=== PATIENT | male | born 1945 | race Caucasian/White ===

== ENCOUNTER → 2018-12-27 10:08 | Outpatient (CLI) | payer MEDICARE, OTHER, SELFPAY ==
[2018-12-27 12:29] LABS: Absolute Lymphocyte Count 2.36 X10^3/ul (0.83-4.51); Absolute Neutrophil Count 6.2 X10^3/uL (2.0-7.7); Basophil# 0.02 X10^3/uL; Basophil% 0.2 % (0-1); Eosinophil# 0.16 X10^3/uL; Eosinophils% 1.6 % (0-5); Hematocrit 45.2 % (40-54); Hemoglobin 15.5 g/dl (13.0-16.5); Lymphocyte # 2.36 X10^3/ul (4.0); Lymphocyte % 24.1 % (19-41); Mean Corp Hgb Conc 34.3 g/gl (32-36); Mean Corpuscular Hgb 31.1 pg (27.0-32.0); Mean Corpuscular Volume 90.6 fL (80-94); Mean Platelet Vol. 10.8 fl (6.2-12.0); Monocyte% 10.2 % (0-10); Neutrophil # 6.21 X10^3/uL (2.7-7.7); Neutrophil % 63.6 % (47-70); POSITIVE COUNT NO; POSITIVE DIFFERENTIAL NO; POSITIVE MORPHOLOGY NO; Platelet Count 227 K/mm3 (150-450); RBC Distribution Width CV 13.5 % (11.6-14.6); RBC Distribution Width SD 44.4 fl (35.1-43.9); Red Blood Count 4.99 M/mm3 (4.6-6.2); White Blood Count 9.8 K/mm3 (4.4-11.0)
[2018-12-27 13:00] LABS: ALB/GLOB Ratio 1.1 RATIO (0.9-2.4); AST(SGOT) 19 U/L (15-37); Alanine Aminotransfer ALT/SGPT 28 U/L (16-61); Albumin, Serum 3.9 g/dL (3.2-5.0); Alkaline Phosphatase 72 U/L (45-117); Anion Gap 10 (5-15); BUN 33 mg/dL (7-18); BUN/Creat Ratio 23.4 RATIO (10-20); Chloride 103 mmol/L (98-107); Creatinine, Serum 1.41 mg/dL (0.70-1.30); EST Glomerular Filtration Rate 52 mL/min (>60); Est Glom Filt Rate - Afr Amer 63 mL/min (>60); Globulin 3.5 g/dL (2.2-4.2); Glucose 97 mg/dL (74-106); Microalbumin,Random Urine 47.8 mg/L (NO RANGE EST.); Potassium 3.3 mmol/L (3.5-5.1); Protein, Total 7.4 g/dL (6.4-8.2); Sodium Level 141 mmol/L (136-145); T4 Free Direct 0.87 ng/dL (0.76-1.46); Thyroid Stim Hormone (TSH) 2.74 uIU/mL (0.358-3.74)
== END ==
PROVIDERS: Family Provider Family Medicine; PCP Family Medicine; Visit Provider Family Medicine
DX: I10 Essential (primary) hypertension (principal); R94.6 Abnormal results of thyroid function studies
CPT/HCPCS: 36415; 80053; 82043; 82570; 84439; 84443; 85025

== ENCOUNTER → 2018-12-29 13:05 | Outpatient (CLI) | payer MEDICARE, OTHER, SELFPAY ==
--- NOTE | 2018-12-29 13:08 | RAD_ITS ---
STUDY: X-RAY CHEST REASON FOR EXAM: Male, 73 years old. Chest pain TECHNIQUE: PA and lateral views of the chest COMPARISON: None. FINDINGS: A left base infiltrate is present. The right lung is clear. There is no significant effusion. There is no pneumothorax. The heart is normal in size. The visualized osseous structures are within normal limits. RAD/Chest PA and Lateral IMPRESSION: Left base infiltrate. Electronically Signed: Godfrey Gusman, at 17:42 EDT Tel , Service support ,
== END ==
PROVIDERS: Family Provider Family Medicine; PCP Family Medicine; Referring Provider Family Medicine; Visit Provider Family Medicine
DX: R05 Cough (principal)
CPT/HCPCS: 71046

== ENCOUNTER → 2019-02-19 13:15 | Outpatient (CLI) | payer MEDICARE, OTHER, SELFPAY ==
--- NOTE | 2019-02-19 13:20 | RAD_ITS ---
STUDY: X-RAY CHEST REASON FOR EXAM: Male, 73 years old. Pneumonia follow-up TECHNIQUE: PA and lateral views of the chest. COMPARISON: 12/29/2018 FINDINGS: There is minimal linear density within the left lower lobe. There is no visualized new focal consolidation. There is left lower lobe focal nodularity measuring 5.6 mm and 6.7 mm. There is no demonstrated pleural abnormality. There is a stable peripheral nodular density within the right lung measuring 7.5 mm. Normal size heart. Normal mediastinum and volodymyr. Normal visualized pulmonary arteries. Normal visualized aortic arch and descending thoracic aorta. There are diffuse degenerative changes of the visualized thoracic spine. Normal visualized ribs, clavicles, and shoulders. There is no demonstrated abnormality of the visualized soft tissue structures of the upper abdomen. RAD/Chest PA and Lateral IMPRESSION: Linear density in the left lung base which may represent scarring or atelectasis possible residual pneumonia. However there are 2 newly visualized nodular densities. Stable peripheral nodular density right lung. Recommend consideration for follow-up noncontrast chest CT for further evaluation. These may represent inflammatory nodules however neoplastic disease should be excluded. Electronically Signed: Kanika Ortega MD at 18:10 EDT Tel , Service support ,
== END ==
PROVIDERS: Family Provider Family Medicine; PCP Family Medicine; Referring Provider Family Medicine; Visit Provider Family Medicine
DX: R05 Cough (principal)
CPT/HCPCS: 71046

== ENCOUNTER → 2019-02-23 13:11 | Outpatient (CLI) | payer MEDICARE, OTHER, SELFPAY ==
[2016-09-20 08:21] VITALS: BMI 29.2
--- NOTE | 2019-02-23 13:16 | CT_ITS ---
STUDY: CT MAXILLOFACIAL SINUSES REASON FOR EXAM: Male, 73 years old. Sinusitis. Congestion. RADIATION DOSAGE (If Supplied By Facility): CTDIvol = ( 33.00 ) mGy, DLP = ( 804.92 ) mGycm TECHNIQUE: The patient was scanned in a multi detector CT scanner. High resolution axial imaging was performed without the administration of intravenous contrast material. Sagittal and coronal images were reconstructed. Individualized dose optimization techniques were used for this CT. COMPARISON: None. FINDINGS: FRONTAL SINUSES: Normal aeration, without mucosal inflammatory disease. ETHMOIDAL SINUSES: Normal aeration, without mucosal inflammatory disease. MAXILLARY SINUSES: Minimal mucosal thickening of the right maxillary sinus. SPHENOIDAL SINUSES: Normal aeration, without mucosal inflammatory disease. There is patency of the bilateral maxillary infundibuli with normal uncinate processes, ethmoid bullae, and hiatus semilunaris. Normal bilateral middle turbinates. Normal bilateral inferior turbinates. There is a right sided nasal septal deviation with a right sided nasal septal spur. There is patency of the bilateral nasal airways. The visualized osseous structures are normal. The visualized bilateral orbital contents are normal. CT/Sinus/Facial Bone IMPRESSION: Minimal mucosal thickening of the right maxillary sinus. Right sided nasal septal deviation with a nasal septal spur. Electronically Signed: Yakov Mcclure, at 14:35 EDT , Service support ,
--- NOTE | 2019-02-23 13:18 | CT_ITS ---
STUDY: CT CHEST WITHOUT CONTRAST REASON FOR EXAM: Male, 73 years old. Sinusitis. Congestion. Lung nodule. Question pneumonia. RADIATION DOSAGE (If Supplied By Facility): CTDIvol = ( 13.66 ) mGy, DLP = ( 484.72 ) mGycm TECHNIQUE: Transaxial imaging was performed without the administration of intravenous contrast material. Multiplanar coronal and sagittal images were reformatted. Individualized dose optimization techniques were used for this CT. COMPARISON: Chest, February 19, 2019. FINDINGS: There is minimal linear scarring in the lingula. The lungs are otherwise mildly hyperexpanded. There is no visualized mass or nodule. No consolidation. There is no demonstrated pleural abnormality. Normal heart and pericardium. Normal mediastinum. Normal hilar regions. Normal unenhanced pulmonary arteries. There is scattered atherosclerotic changes of the thoracic aorta without aneurysm. There are multi-level degenerative changes of the thoracic spine. Prominence left thyroid with low-attenuation suggesting nodule. There is no demonstrated abnormality of the visualized upper abdomen. CT/Chest without Contrast IMPRESSION: 1. Linear scarring in the lingula. There is no evidence of nodular density or infiltrate within the lungs. 2. Enlarged left thyroid. 3. Minimal atherosclerotic changes of the thoracic aorta. Electronically Signed: Santosh Jackson DO at 17:20 EDT Tel [phone], Service support ,
== END ==
PROVIDERS: Family Provider Family Medicine; PCP Family Medicine; Referring Provider Otolaryngology; Visit Provider Otolaryngology
DX: J32.9 Chronic sinusitis, unspecified (principal); R05 Cough
CPT/HCPCS: 70486; 71250

== ENCOUNTER → 2019-03-08 13:54 | Outpatient (CLI) | payer MEDICARE, OTHER, SELFPAY ==
--- NOTE | 2019-03-08 13:57 | US_ITS ---
HISTORY: NODULE SEEN ON CT COMPARISON: CT chest 02/23/2019 TECHNIQUE: Grayscale and color Doppler sonography of the thyroid gland. FINDINGS: RIGHT LOBE: 4.8 x 1.7 x 1.5 cm LEFT LOBE: 3.6 x 1.9 x 2.3 cm ISTHMUS: 4 mm 6 x 3 x 5 mm and 4 x 3 x 3 mm right thyroid lobe cysts. Mildly heterogeneous 2.5 x 1.9 x 1.8 cm left thyroid lobe nodule, nearly isoechoic centrally and hypoechoic peripherally with increased vascularity and relatively smooth margins. No definite calcifications. TI-RADS 4. Normal overall thyroid vascularity. US/Thyroid IMPRESSION: Solid left thyroid lobe nodule. Fine-needle aspiration recommended for further characterization. at 0626 Reported and signed by: Heather Constantino MD Electronically Signed: Heather Constantino MD at 6:26 EDT Tel , Service support ,
== END ==
PROVIDERS: Family Provider Family Medicine; PCP Family Medicine; Referring Provider Family Medicine; Visit Provider Family Medicine
DX: E04.1 Nontoxic single thyroid nodule (principal)
CPT/HCPCS: 76536

== ENCOUNTER → 2019-03-27 10:54 | Outpatient (CLI) | payer MEDICARE, OTHER, SELFPAY ==
[2019-03-27 09:04] VITALS: BMI 29.2
--- NOTE | 2019-03-27 09:10 | ASPS_PTH ---
PATIENT: MAGDALENE KWOK LOC: [facility] U#:[id number] AGE/SX: 79/M ROOM: RE03/27/[address]: Dr. Shimon Hunter MD : 1945 BED: DIS: SPEC #: [id number] RECD: 03/27/19 10:42 STATUS: KAYLA ARSLAN #: [id number] UBALDO: 03/27/19 09:[address]: Shimon Hunter DEPT: CYTOLOGY RECD BY: Jono Nichols ENTERED: 03/27/19 11:12 SP TYPE: ASPIRATION OTHR DR: Dr. Jacob Watson MD Tissues: Thyroid gland, NOS Procedures: Special Stain Group II Cytology Other HEADER OPERATION: Ultrasound guided fine needle aspiration, left thyroid PRE-OP DIAGNOSIS: Uninodular goiter E04.1 TISSUE SUBMITTED: Fine needle aspiration, left thyroid DIAGNOSIS CYTOLOGY Fine needle aspiration, left thyroid nodule (smears): Adequate for evaluation. Negative, consistent with benign follicular/colloid nodule. AM:a[place]in 03/28/19 COMMENT Immediate cytologic evaluation to determine adequacy is not applicable. CYTOLOGY STUDY Slides are reviewed. CYTOLOGY GROSS Received are 12 smears labeled with the patient's name and designated per the requisition as FNA left thyroid. Submitted for staining. /CC:cc 03/27/19 TC:5 [facility]: [id number]
== END ==
PROVIDERS: Family Provider Family Medicine; PCP Family Medicine; Referring Provider Surgery; Visit Provider Surgery
DX: E04.1 Nontoxic single thyroid nodule (principal)
CPT/HCPCS: 88161; 88313

== ENCOUNTER → 2019-07-02 10:42 | Outpatient (CLI) | payer MEDICARE, OTHER, SELFPAY ==
[2019-03-27 09:04] VITALS: BMI 29.2
[2019-07-02 12:51] LABS: Anion Gap 3 (5-15); BUN 22 mg/dL (7-18); BUN/Creat Ratio 16.4 RATIO (10-20); Calcium,Total 8.7 mg/dL (8.5-10.1); Chloride 105 mmol/L (98-107); Cholesterol 263 mg/dL (200); Creatinine, Serum 1.34 mg/dL (0.70-1.30); EST Glomerular Filtration Rate 56 mL/min (>60); Est Glom Filt Rate - Afr Amer 67 mL/min (>60); Glucose 92 mg/dL (74-106); High Density Lipoprotein 38 mg/dL; Potassium 3.6 mmol/L (3.5-5.1); Sodium Level 138 mmol/L (136-145); Triglycerides 268 mg/dL; Very Low Density Lipoprotein 54 mg/dL (5-40)
== END ==
PROVIDERS: Family Provider Family Medicine; PCP Family Medicine; Visit Provider Family Medicine
DX: I12.9 Hypertensive chronic kidney disease with stage 1 through stage 4 chronic kidney disease, or unspecified chronic kidney disease (principal); N18.9 Chronic kidney disease, unspecified; E87.6 Hypokalemia; E78.5 Hyperlipidemia, unspecified
CPT/HCPCS: 36415; 80048; 80061; 84443

== ENCOUNTER → 2019-08-02 14:54 | Outpatient (CLI) | payer MEDICARE, OTHER, SELFPAY ==
[2019-03-27 09:04] VITALS: BMI 29.2
--- NOTE | 2019-08-02 14:59 | RAD_ITS ---
STUDY: X-RAY - LUMBAR SPINE REASON FOR EXAM: Male, 74 years old. Radiating low back pain TECHNIQUE: 5 view(s) of the lumbar spine were obtained. COMPARISON: None FINDINGS: Normal lumbar lordosis. There is no substantial scoliosis. There is a normal alignment of the vertebrae. There is multilevel endplate spondylosis of the lumbar vertebrae. There is multi-level degenerative disc disease with multi-level disc space narrowing. There is no demonstrated fracture. There is atherosclerotic calcification of the abdominal aorta without a demonstrated aneurysm. RAD/L/S Spine Min 4 Views IMPRESSION: Degenerative changes of the spine, as detailed above. Electronically Signed: Carl Fulton MD at 13:43 EST , Service support ,
== END ==
PROVIDERS: PCP Family Medicine; Referring Provider Family Medicine; Visit Provider Family Medicine
DX: M54.30 Sciatica, unspecified side (principal)
CPT/HCPCS: 72110

== ENCOUNTER 2019-08-30 14:30 | Outpatient (RCR) | payer MEDICARE, OTHER, SELFPAY ==
[2019-03-27 09:04] VITALS: BMI 29.2
--- NOTE | 2019-08-09 11:27 | HP.PTEVAL_ITS ---
Patient's Visit Information MAGDALENE KWOK is a 74 year old M referred to Physical Therapy by Jacob Watson MD with a diagnosis of sciatica. Date of Evaluation: 08/09/19 Physical Therapist: Bhavin Garcia, [place], OCS, CSCS - Visit Plan Frequency: 2x /Week Duration: 4-6 Weeks Plan: 2x/week for 4-6 weeks for ... 1. NS spine postioning exercises adn focus. 2. LB ROM exercises to HEP. 3. core strengthening in NS(mat). 4. rollout adn stretch quad, HS, ITB, pIriformis. Show hip flexor stretch for HEP. - Subjective Findings: For a year and a half has had recurrent sciatica problems. Initially was given prednisone which helped for 3 months. Came back. He put up with it for a while eventually got more steroids and then it returned after two months. Acted up again before Elvis. Had x ray of back last week which showed was OK. Sent for physical therapy. Pain is posterior R hip down lateral leg to lower leg and sometimes the ankle if he stands too long. Pain is 8/10 standing or walking. Sitting is OK most of time 0/10. Walking at store hurts. Has to hold on to cart at times. No back pain even bending. Stairs are not too bad. Sleeping is uncomfortable when he first lies down as it throbs. LYing on back is worst. L side with pillow between knees is comfortable. Retired. 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 Hobbies include computer work whcih is OK. Basic ADLs are OK but needs to rest. - Pain R lateral leg Pain Intensity (Out of 10): 0 Pain Intensity Range: 0, 8 - Objective R lateral leg slightly tender to touch in ITB and piriformis and down into lateral calf. Posture is stiff in LB and slightly hunched forward, flat lordosis. LB AROM ext mod limited adn creates leg pain R. R SB min limited and R leg pain, L SB OK, flexion limited in lumbar segments, no pain. HS, quad, piriformis, ITB and hip flexors mod tight B. 4/5 LE strength without myotomal abnormalities. reflexes 2/3 patella and achilles. Sensation WNL to gross light touch. PA pressure is stiff but no probem pain church. Walks and transfers I. - Goals Goal 1:: right leg pain 90% better and 1/10 at worst Goal Time Frame: 4-6 Weeks Goal 2:: I approp HEp and positions to minimize problems. Goal Time Frame: 4-6 Weeks Goal 3:: Sleep without discomfort. 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 Goal Time Frame: 4-6 Weeks - Rehabilitation Potential Physical Therapy Diagnosis: sciatica Rehabilitation Potential: Fair - Anticipated Interventions Patient/Client Instruction: Educate patient on: Condition, Plan of Care For the Purpose of:: To decrease pain, To increase ROM, To improve muscle performance and motor function, To increase tolerance to activity/condition/position, To improve ability of physical actions for home/community/work/leisure Therapeutic Exercise to Include: Strength training, Flexibilty training, Dynamic Lumbar Stabilization For the Purpose of:: To decrease pain, To increase ROM, To improve muscle performance and motor function, To increase tolerance to activity/condition/position Manual Therapy Techniques to Include: Passive ROM, Soft tissue mobilization For the Purpose of:: To increase ROM Thank you for the opportunity to evaluate your patient. For Medicare and Medicare HMO plans, please review the plan of care and approve it. It will need to be FAXED BACK to us at [phone] for Medicare purposes. For Medicare only, by signing this I certify the plan of care. Please let me know if there are questions or concerns regarding this plan of care. Physician Signature: Date:
--- NOTE | 2019-08-30 15:15 | HP.PTDCSUM ---
HP - PT D/C Summary It has been my pleasure to treat MAGDALENE KWOK under orders from Jacob Watson MD, for the diagnosis of sciatica for a total of 7 visit(s). Discharge Date: 08/30/19 Please see the following information for a summary of their discharge status. - Subjective Subjective: Not much progress. One day could not do exercise ext due to L leg pain. Got it in most days and seems to help for a little bit. Walking is still what gets him. 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 OK sitting. - Pain R lateral leg Pain Intensity (Out of 10): 4 - Overall Improvement % Improvement: 0 - Objective Objective/Function: L/S aROM still stiff in flexion and painful in ext centrally. R SB creates leg pain but is good. L SB is full and painfree. Walking well today but subjectively limited distance church. PT NOT IMPROVING AND WOULD LIKE TO F/U WITH DOCTOR FOR NEXT MEDICAL STEP(DIAGNOSTICS VS INJEDCTION ETC) POOL THERAPY SHOULD BE CONSIDERED IF NO OTHER OPTIONS. - Goals Goal 1:: right leg pain 90% better and 1/10 at worst Goal Progress: Not Progressing Goal 2:: I approp HEp and positions to minimize problems. Goal Progress: Not Progressing Goal 3:: Sleep without discomfort. 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 If there are questions or concerns regarding this patient's physical therapy, please feel free to call me at [phone]. Thank you for the referral of this patient. Sincerely, Bhavin Garcia, DPT, OCS, CSCS
== END 2019-08-30 19:00 | disposition home or self-care (01) ==
LOC: PT 14:30
PROVIDERS: PCP Family Medicine; Visit Provider Family Medicine
DX: M54.30 Sciatica, unspecified side (principal)
CPT/HCPCS: 97110; 97162; 97164

== ENCOUNTER → 2019-09-07 16:17 | Outpatient (CLI) | payer MEDICARE, OTHER, SELFPAY ==
[2019-03-27 09:04] VITALS: BMI 29.2
--- NOTE | 2019-09-07 16:22 | MRI_ITS ---
STUDY: MRI LUMBAR SPINE WITHOUT CONTRAST REASON FOR EXAM: Male, 74 years old. R FOOT DROP, SCIATICA PAIN INTO R LEG X 4 MONTHS TECHNIQUE: Standardized fat and water weighted pulse sequences were obtained in the sagittal and axial planes. COMPARISON: None FINDINGS: T12-L1: Normal endplates. Normal disc height, hydration and morphology. Normal bilateral facet joints. Normal central canal and bilateral lateral recesses. Normal bilateral intervertebral neural foramina. Normal lumbar lordosis. There is no substantial scoliosis. Normal conus medullaris that terminates at the L1 level. L1-2: Normal endplates. Normal disc height, hydration and morphology. Normal bilateral facet joints. Normal central canal and bilateral lateral recesses. Normal bilateral intervertebral neural foramina. L2-3: Endplate spondylosis. Decreased disc height and small circumferential disc bulge. Degenerative changes of the bilateral facet joints. Mild narrowing of the central canal and bilateral intervertebral neural foramina. L3-4: Endplate spondylosis. Decreased disc height and small circumferential disc bulge. Degenerative changes of the bilateral facet joints. Mild narrowing of the central canal and bilateral intervertebral neural foramina. L4-5: Endplate spondylosis. Decreased disc height and small circumferential disc bulge. There is superimposed left foraminal disc herniation impinging on the left L4 nerve root. Degenerative changes of the bilateral facet joints. Mild narrowing of the central canal and bilateral intervertebral neural foramina. L5-S1: Endplate spondylosis. Decreased disc height and moderate circumferential disc bulge. Right foramina disc herniation impinging on the right L5 nerve root. Degenerative changes of the bilateral facet joints. Moderate narrowing of the central canal. Severe right and moderate left intervertebral neural foraminal narrowing. Normal visualized sacral ala. Normal visualized paraspinous soft tissue structures. MRI/Spine Lumbar (Routine) IMPRESSION: Multilevel degenerative changes, as described above. Left foraminal disc herniation at L4-5. Right foraminal disc herniation at L5-S1. Electronically Signed: Paul Dhillon, at 8:15 EDT Tel , Service support ,
== END ==
PROVIDERS: PCP Family Medicine; Referring Provider Family Medicine; Visit Provider Family Medicine
DX: M54.17 Radiculopathy, lumbosacral region (principal); M21.371 Foot drop, right foot
CPT/HCPCS: 72148

== ENCOUNTER → 2019-11-06 13:28 | Outpatient (CLI) | payer MEDICARE, OTHER, SELFPAY ==
[2019-03-27 09:04] VITALS: BMI 29.2
[2019-11-06 13:30] LABS: Bacteria 0 SEEN /hpf (None Seen); Mucous, Urine 0 SEEN /hpf (<or=2+); White Blood Cells 0 SEEN /hpf (0-5)
[2019-11-06 15:05] LABS: Absolute Lymphocyte Count 1.14 X10^3/uL (0.83-4.51); Basophil# 0.06 X10^3/uL; Basophil% 0.5 % (0-1); Eosinophil# 0.13 X10^3/uL; Eosinophils% 1.1 % (0-5); Hematocrit 47.7 % (40-54); Hemoglobin 16.1 g/dL (13.0-16.5); Lymphocyte # 1.14 X10^3/ul (4.0); Lymphocyte % 9.2 % (19-41); Mean Corp Hgb Conc 33.8 g/dL (32-36); Mean Corpuscular Hgb 31.4 pg (27.0-32.0); Mean Platelet Vol. 10.4 fl (6.2-12.0); Monocyte# 0.95 X10^3/uL; Monocyte% 7.7 % (0-10); NRBC Flagged by Analyzer 0 % (0-5); Neutrophil # 10.01 X10^3/uL (2.7-7.7); Neutrophil % 80.8 % (47-70); Platelet Count 277 K/mm3 (150-450); RBC Distribution Width CV 13.4 % (11.6-14.6); RBC Distribution Width SD 45.9 fl (35.1-43.9); Red Blood Count 5.13 M/mm3 (4.6-6.2); White Blood Count 12.4 K/mm3 (4.4-11.0)
[2019-11-06 15:22] LABS: Anion Gap 9 (5-15); BUN 27 mg/dL (7-18); BUN/Creat Ratio 20.8 RATIO (10-20); Calcium,Total 9.3 mg/dL (8.5-10.1); Chloride 102 mmol/L (98-107); EST Glomerular Filtration Rate 57 mL/min (>60); Est Glom Filt Rate - Afr Amer 70 mL/min (>60); Glucose 101 mg/dL (74-106); Potassium 3.8 mmol/L (3.5-5.1); Sodium Level 138 mmol/L (136-145)
[2019-11-06 17:10] LABS: Color, Urine Yellow (Yellow); Glucose, Dipstick Normal (Normal); Ketone-Dipstick 5 mg/dl (Negative); Leukocyte Esterase-Dipstick Negative /ul (Negative); Nitrite-Dipstick Negative (Negative); Occult Blood-Urine 10 /ul (Negative); Protein-Dipstick Negative (Negative); Urine Bilirubin Dipstick Negative (Negative); Urine Clarity Sl. Cloudy (Clear); Urine Urobilinogen Normal (Normal)
[2019-11-06 17:24] LABS: Red Blood Cells-Urine 0-5 SEEN /hpf (0-5); Squamous Epithelial Cells - UA 0-5 SEEN /hpf (0-5)
== END ==
PROVIDERS: PCP Family Medicine; Visit Provider Family Medicine
DX: Z01.818 Encounter for other preprocedural examination (principal)
CPT/HCPCS: 36415; 80048; 81001; 85025

== ENCOUNTER → 2019-12-31 09:58 | Outpatient (CLI) | payer MEDICARE, OTHER, SELFPAY ==
[2019-11-12 15:10] VITALS: BMI 29.8
[2019-12-31 12:39] LABS: Absolute Lymphocyte Count 1.92 X10^3/uL (0.83-4.51); Absolute Neutrophil Count 5.7 X10^3/uL (2.0-7.7); Basophil# 0.03 X10^3/uL; Basophil% 0.3 % (0-1); Eosinophil# 0.09 X10^3/uL; Hematocrit 46.7 % (40-54); Hemoglobin 15.3 g/dL (13.0-16.5); Lymphocyte # 1.92 X10^3/ul (4.0); Lymphocyte % 22.3 % (19-41); Mean Corp Hgb Conc 32.8 g/dL (32-36); Mean Corpuscular Hgb 30.6 pg (27.0-32.0); Mean Corpuscular Volume 93.4 fL (80-94); Mean Platelet Vol. 10.3 fl (6.2-12.0); Monocyte# 0.88 X10^3/uL; Monocyte% 10.2 % (0-10); NRBC Flagged by Analyzer 0 % (0-5); Neutrophil # 5.65 X10^3/uL (2.7-7.7); Neutrophil % 65.6 % (47-70); Platelet Count 290 K/mm3 (150-450); RBC Distribution Width CV 13.2 % (11.6-14.6); White Blood Count 8.6 K/mm3 (4.4-11.0)
[2019-12-31 13:35] LABS: Anion Gap 6 (5-15); BUN 27 mg/dL (7-18); BUN/Creat Ratio 20.6 RATIO (10-20); Calcium,Total 9.4 mg/dL (8.5-10.1); Chloride 104 mmol/L (98-107); Creatinine, Serum 1.31 mg/dL (0.70-1.30); EST Glomerular Filtration Rate 57 mL/min (>60); Est Glom Filt Rate - Afr Amer 69 mL/min (>60); Glucose 102 mg/dL (74-106); Potassium 3.4 mmol/L (3.5-5.1); Sodium Level 139 mmol/L (136-145); T4 Free Direct 0.97 ng/dL (0.76-1.46); Thyroid Stim Hormone (TSH) 2.97 uIU/mL (0.358-3.74)
== END ==
PROVIDERS: PCP Family Medicine; Visit Provider Family Medicine
DX: I10 Essential (primary) hypertension (principal); R94.6 Abnormal results of thyroid function studies
CPT/HCPCS: 36415; 80048; 84439; 84443; 85025

== ENCOUNTER → 2020-01-24 06:20 | Outpatient (CLI) | payer MEDICARE, OTHER, SELFPAY ==
[2020-01-10 09:33] VITALS: BMI 29.4
--- NOTE | 2020-01-24 06:22 | ECHOD_ITS ---
Reason For Study: Abnormal EKG Procedure This was a 2D Doppler, Color Flow transthoracic echocardiogram. The study was technically difficult. Exam performed in department. Left Ventricle Normal LV size. Left ventricular systolic function is normal. The estimated ejection fraction is 65 %. No evidence for diastolic dysfunction. No regional wall motion abnormalities noted. Right Ventricle Normal RV size. Normal systolic function. Atria The left atrium is mildly enlarged. Normal right atrium. No doppler evidence for ASD. Mitral Valve There is no mitral annular calcification. Normal mitral valve. Mild (1+) mitral valve insufficiency. Tricuspid Valve Normal tricuspid valve. Mild tricuspid valve insufficiency. Right ventricular systolic pressure estimated to be 33 mmHg. Aortic Valve Trisinus/trileaflet aortic valve. Normal aortic valve. Pulmonic Valve The pulmonic valve is not well visualized. Trivial pulmonic valve insufficiency. Great Vessels Normal sized aortic root. Pericardium/Pleural No pericardial effusion. MMode/2D Measurements & Calculations LVIDd: 4.7 cm IVSd: 1.2 cm Ao root diam: 3.7 cm LVIDs: 2.6 cm LVPWd: 0.92 cm RVDd: 3.5 cm FS: 43.7 % LAV(MOD-bp): 43.2 ml LA A4 area: 19.8 cm2 LA dimension(2D): 4.2 cm LAV(MOD-bp) Indexed: 22.6 ml/m2 LAV(MOD-sp2): 26.4 ml LAV(MOD-sp4): 55.7 ml RA A4 area: 15.1 cm2 Doppler Measurements & Calculations MV E max tonio: 82.2 cm/sec Lat Peak E' Tonio: 7.9 cm/sec Med Peak E' Tonio: 7.9 cm/sec MV A max tonio: 87.6 cm/sec E/E' lat: 10.4 E/E' med: 10.4 MV E/A: 0.94 Ao V2 max: 186.0 cm/sec LV V1 max: 176.1 cm/sec PA V2 max: 102.1 cm/sec Ao max P.8 mmHg LV V1 max P.4 mmHg Ao V2 mean: 127.2 cm/sec Ao mean P.2 mmHg Ao V2 VTI: 37.6 cm TR max tonio: 273.0 cm/sec TR max P.8 mmHg Interpretation Summary The study was technically difficult. Left ventricular systolic function is normal. The estimated ejection fraction is 65 %. The left atrium is mildly enlarged. Mild (1+) mitral valve insufficiency. Mild tricuspid valve insufficiency. Trivial pulmonic valve insufficiency. Right ventricular systolic pressure estimated to be 33 mmHg. No evidence for diastolic dysfunction. Ordering Physician: Rubén James Referring Physician: Jacob Watson Performed By: Roof, Hilaria, RDCS, RVT
--- NOTE | 2020-01-24 08:48 | STRESSREP ---
Stress Test Report Date: 01-24-2020 Procedure: Pharmacologic stress nuclear imaging study Indications: Abnormal ECG; hypertension Consent: Per the patient Procedure: The patient underwent pharmacologic (Regadenoson) evaluation with a peak heart rate of 100 beats per minute (68 %predicted maximal heart rate) and a peak blood pressure of 160/90 mmHg. The baseline ECG demonstrated sinus rhythm; right bundle branch block. The peak pharmacologic ECG demonstrated no obvious ECG changes. There were no cardiac dysrhythmias pretest, during pharmacologic infusion, or recovery. There was no complaint of chest discomfort during pharmacologic infusion or recovery. The examination was discontinued secondary to completion of protocol. Impression: 1. Pharmacologic (Regadenoson) evaluation 2. Peak pharmacologic ECG with continued right bundle branch block with no obvious ECG changes. 3. There were no cardiac dysrhythmias pretest, during pharmacologic infusion, or recovery. 4. Nuclear images pending Myocardial perfusion imaging study: Technique: The patient was injected with 11.4 millicuries of technetium 99m Cardiolite and subsequently rest SPECT Cardiolite nuclear imaging was obtained in the horizontal long, vertical long, and short axis views. The patient underwent pharmacologic (Regadenoson) evaluation with a peak heart rate of 100 beats per minute (68 % percent predicted maximal heart rate) and a peak blood pressure of 160/90 mmHg. The patient was injected with 32.7 millicuries of technetium 99m Cardiolite and subsequently stress SPECT Cardiolite nuclear imaging was obtained in the horizontal long, vertical long, and short axis views. A gated Cardiolite study at peak stress was obtained. Interpretation: Rest and stress SPECT Cardiolite nuclear imaging status post realignment, normalization, and attenuation correction demonstrate the appearance of a small area of subtle diminished tracer uptake near the apical segments without significant change between rest and stress. There is end systolic thickening and brightening. The gated Cardiolite study demonstrates myocardial thickening and inward wall motion. The reported LVEF is 88 %. Impression: 1. Rest and stress SPECT Cardiolite nuclear imaging demonstrate myocardial perfusion changes appearing compatible defects of physiologic apical thinning with no myocardial perfusion changes consider diagnostic for associated stress-induced myocardial ischemia. 2. The gated Cardiolite study reports an LVEF of 88 %. This note was generated with SMR SITEation software. It may contain incorrect words, spelling, and punctuation that were not noted in checking the note before signing.
== END ==
PROVIDERS: PCP Family Medicine; Referring Provider Internal Medicine Cardiovascular Disease; Visit Provider Internal Medicine Cardiovascular Disease
DX: R94.31 Abnormal electrocardiogram [ECG] [EKG] (principal); I10 Essential (primary) hypertension; E78.5 Hyperlipidemia, unspecified; I45.10 Unspecified right bundle-branch block; G47.30 Sleep apnea, unspecified
CPT/HCPCS: 78452; 93017; 93306; A9500; A4216; J2785

== ENCOUNTER → 2022-04-06 | Outpatient (CLI) | payer MEDICARE, SELFPAY ==
[2022-04-06 12:28] LABS: Absolute Lymphocyte Count 1.85 X10^3/uL (0.83-4.51); Absolute Neutrophil Count 4.1 X10^3/uL (2.0-7.7); Basophil# 0.05 X10^3/uL; Basophil% 0.7 % (0-1); Eosinophil# 0.15 X10^3/uL; Eosinophils% 2.2 % (0-5); Hemoglobin 15.6 g/dL (13.0-16.5); Lymphocyte # 1.85 X10^3/ul (0.83-4.51); Lymphocyte % 27.1 % (19-41); Mean Corp Hgb Conc 34.7 g/dL (32-36); Mean Corpuscular Hgb 31.5 pg (27.0-32.0); Mean Corpuscular Volume 90.9 fL (80-94); Mean Platelet Vol. 10.2 fl (6.2-12.0); Monocyte# 0.68 X10^3/uL; NRBC Flagged by Analyzer 0 % (0-5); Neutrophil # 4.08 X10^3/uL (2.7-7.7); Neutrophil % 59.9 % (47-70); Platelet Count 292 K/mm3 (150-450); RBC Distribution Width SD 43.8 fl (35.1-43.9); Red Blood Count 4.95 M/mm3 (4.6-6.2); White Blood Count 6.8 K/mm3 (4.4-11.0)
[2022-04-06 12:49] LABS: BUN 22 mg/dL (7-18); BUN/Creat Ratio 17.3 RATIO (10-20); Calcium,Total 9.1 mg/dL (8.5-10.1); Chloride 104 mmol/L (98-107); Cholesterol 270 mg/dL (200); Creatinine, Serum 1.27 mg/dL (0.70-1.30); EST Glomerular Filtration Rate 59 mL/min (>60); Est Glom Filt Rate - Afr Amer 71 mL/min (>60); Glucose 104 mg/dL (74-106); Potassium 3.9 mmol/L (3.5-5.1); Sodium Level 139 mmol/L (136-145); Triglycerides 419 mg/dL
[2022-04-06 12:50] LABS: Anion Gap 6 (5-15); High Density Lipoprotein 35 mg/dL; T4 Free Direct 0.84 ng/dL (0.76-1.46); Thyroid Stim Hormone (TSH) 3.04 uIU/mL (0.358-3.74)
== END | disposition home or self-care (01) ==
PROVIDERS: PCP Family Medicine; Visit Provider Family Medicine
DX: I10 Essential (primary) hypertension (principal); R94.6 Abnormal results of thyroid function studies; R73.9 Hyperglycemia, unspecified
CPT/HCPCS: 36415; 80048; 80061; 84439; 84443; 85025

== ENCOUNTER → 2022-08-25 | Outpatient (CLI) | payer MEDICARE, SELFPAY ==
[2022-08-25 12:54] LABS: AST(SGOT) 31 U/L (15-37); Alanine Aminotransfer ALT/SGPT 32 U/L (16-61); Albumin, Serum 4.1 g/dL (3.2-5.0); Alkaline Phosphatase 93 U/L (45-117); Bilirubin, Direct 0.19 mg/dL (0.00-0.30); Cholesterol 162 mg/dL (200); Globulin 3.3 g/dL (2.2-4.2); High Density Lipoprotein 37 mg/dL; Protein, Total 7.4 g/dL (6.4-8.2); Triglycerides 217 mg/dL; Very Low Density Lipoprotein 43 mg/dL (5-40)
== END | disposition home or self-care (01) ==
LOC: BFHLAB 09:48
PROVIDERS: PCP Family Medicine; Visit Provider Family Medicine
DX: E78.5 Hyperlipidemia, unspecified (principal)
CPT/HCPCS: 36415; 80061; 80076

== ENCOUNTER → 2023-06-16 | Outpatient (CLI) | payer MEDICARE, SELFPAY ==
[2023-06-16 18:10] LABS: CRP < 2.90 mg/L (0.0-3.0)
[2023-06-16 18:57] LABS: Erythrocyte Sedimentation Rate 11 mm/hr (0-20)
== END | disposition home or self-care (01) ==
LOC: BFHLAB 16:27
PROVIDERS: PCP Family Medicine; Visit Provider Family Medicine
DX: M35.3 Polymyalgia rheumatica (principal)
CPT/HCPCS: 36415; 85652; 86140

== ENCOUNTER → 2023-10-20 | Outpatient (CLI) | payer MEDICARE, SELFPAY ==
[2023-10-20 17:43] LABS: Absolute Lymphocyte Count 1.85 X10^3/uL (0.83-4.51); Absolute Neutrophil Count 4.7 X10^3/uL (2.0-7.7); Basophil# 0.04 X10^3/uL; Basophil% 0.6 % (0-1); Eosinophil# 0.14 X10^3/uL; Eosinophils% 1.9 % (0-5); Hematocrit 44.4 % (40-54); Hemoglobin 14.8 g/dL (13.0-16.5); Lymphocyte # 1.85 X10^3/ul (0.83-4.51); Lymphocyte % 25.4 % (19-41); Mean Corp Hgb Conc 33.3 g/dL (32-36); Mean Corpuscular Hgb 30.3 pg (27.0-32.0); Mean Platelet Vol. 10.2 fl (6.2-12.0); Monocyte# 0.52 X10^3/uL; Monocyte% 7.2 % (0-10); NRBC Flagged by Analyzer 0 % (0-5); Neutrophil % 64.6 % (47-70); Platelet Count 257 K/mm3 (150-450); RBC Distribution Width CV 12.7 % (11.6-14.6); RBC Distribution Width SD 42.5 fl (35.1-43.9); Red Blood Count 4.88 M/mm3 (4.6-6.2); White Blood Count 7.3 K/mm3 (4.4-11.0)
[2023-10-20 18:42] LABS: Anion Gap 9 (5-15); BUN 21 mg/dL (7-18); BUN/Creat Ratio 16.7 RATIO (10-20); Calcium,Total 9.3 mg/dL (8.5-10.1); Chloride 103 mmol/L (98-107); Cholesterol 163 mg/dL (200); Creatinine, Serum 1.26 mg/dL (0.70-1.30); EST Glomerular Filtration Rate 59 mL/min (>60); Est Glom Filt Rate - Afr Amer 71 mL/min (>60); Glucose 117 mg/dL (74-106); High Density Lipoprotein 39 mg/dL; PSA,Total - Annual Screen 1.29 ng/mL (0.00-4.00); Potassium 3.5 mmol/L (3.5-5.1); Sodium Level 137 mmol/L (136-145); Triglycerides 210 mg/dL; Very Low Density Lipoprotein 42 mg/dL (5-40)
== END | disposition home or self-care (01) ==
LOC: BFHLAB 14:15
PROVIDERS: PCP Family Medicine; Referring Provider Family Medicine; Visit Provider Family Medicine
DX: Z12.5 Encounter for screening for malignant neoplasm of prostate (principal); E78.5 Hyperlipidemia, unspecified; I10 Essential (primary) hypertension
CPT/HCPCS: 36415; 80048; 80061; 84153; 85025; G0103

== ENCOUNTER 2023-11-04 22:11 | Observation (INO) | payer MEDICARE, SELFPAY ==
[2023-11-04 22:12] VITALS: BP 163/91; PULSE 97; RESP 18; TEMP 36.6; O2SAT 99
--- NOTE | 2023-11-04 22:13 | CT_ITS ---
We are attempting to reach an attending provider to discuss findings. An addendum with communication details will be sent when the communication is complete. INDICATION: cva EXAMINATION: CTA HEAD, AND CTA NECK TECHNIQUE: Routine carotid CT angiogram protocol was performed without and with IV contrast. In addition, images were obtained of the [place]. NASCET criteria using the distal ICAs for comparison were used for evaluation of stenoses. 3D reconstructions were reviewed. A radiation dose optimization technique was used for this scan. IV Contrast dosage and agent: COMPARISON: FINDINGS: --CTA NECK: AORTIC ARCH AND BRANCHES: Normal anatomy, patent. RIGHT CCA: No occlusion, significant stenosis or dissection. RIGHT ICA: No occlusion, significant stenosis or dissection. LEFT CCA: No occlusion, significant stenosis or dissection. LEFT ICA: No occlusion, significant stenosis or dissection. Minimal calcification at the proximal segment. RIGHT VERTEBRAL ARTERY: No occlusion, significant stenosis or dissection. LEFT VERTEBRAL ARTERY: No occlusion, significant stenosis or dissection. NECK SOFT TISSUES: Unremarkable. --CTA HEAD: --Anterior circulation: ICAs: No significant stenosis at the intracranial/visualized segments. ACAs: No significant stenosis at the visualized segments. ACOM: Present. MCAs: No significant stenosis at the visualized segments. --Posterior circulation: PCOMs: Patent on the right. Nonvisualization on the left. consulting manager: Probable hypoplastic right P1 segment. BASILAR ARTERY: No significant stenosis. VERTEBRAL ARTERIES: No significant stenosis at the intradural/visualized segments. No evidence of intracranial aneurysm or vascular malformation. CT/STROKE CTA Head AND Neck W/Con IMPRESSION: Negative CTA Carotid, and CTA Brain. Electronically Signed: Quinton Capps DO at 22:55 EDT Reading Location ID and State: [facility] / [place] Tel [phone], Service support ,
--- NOTE | 2023-11-04 22:13 | CT_ITS ---
We are attempting to reach an attending provider to discuss findings. An addendum with communication details will be sent when the communication is complete. INDICATION: cva EXAMINATION: CT BRAIN - CT Head Stroke Protocol W/O Contrast Injection TECHNIQUE: Multiple axial images were obtained of the head without intravenous contrast. A radiation dose optimization technique was used for this scan. IV Contrast dosage and agent: None. RADIATION DOSAGE (If Supplied By Facility): CTDIvol = ( 44.99 ) mGy, DLP = ( 846.73 ) mGycm COMPARISON: FINDINGS: BRAIN PARENCHYMA: No intra- or extra-axial hemorrhage. No evidence of acute infarct. No intracranial mass or mass effect. Mild age-related white matter microangiopathic ischemic changes. Posterior fossa structures are unremarkable. CSF SPACES: Prominent ventricles and extra-axial spaces with mild atrophy.. No hydrocephalus. Basal cisterns are patent. CALVARIUM, SKULL BASE, PARANASAL SINUSES AND MASTOID AIR CELLS: Clear. No discrete lytic or blastic abnormalities. ORBITS: Both globes, extraocular muscles, optic nerves and retrobulbar fat appear unremarkable. ASPECTS Score for Acute Strokes: 10 CT/STROKE Brain/Head without Cont IMPRESSION: Age-related changes. Electronically Signed: Quinton Capps DO at 22:44 EDT Reading Location ID and State: [facility] / [place] Tel [phone], Service support ,
[2023-11-04 22:15] VITALS: BP 163/91; TEMP 36.4; BMI 28.0
--- NOTE | 2023-11-04 22:15 | ED.VIS.STROK ---
HPI History of Present Illness Chief Complaint: Stroke Alert Detail of Chief Complaint: Abrupt onset of numbness left side and weakness left side Informant: patient and spouse/S.O. Onset/Context/Timing Onset: Hours (15 minutes prior to arrival) Context: Sudden Onset Timing: Continuous Quality and Location: Positive for Left Face Parasthesia, Left Arm Parasthesia, Left Arm Weakness, Left Leg Weakness and Difficulty with Ambulation; Negative for Slurred Speech, Expressive Aphasia or Receptive Aphasia Current Severity: Mild Maximum Severity: Mild Worsened by: Nothing Relieved by: Nothing Associated Symptoms Associated Symptoms: Negative for Headache, Nausea, Vomiting or Chest Pain Narrative Narrative: Patient is a 78-year-old male. He has history of essential hypertension, GERD, hyperlipidemia who presents with left-sided numbness and weakness. This started 50 minutes prior to presentation. Stroke team was initiated. Patient [place] headache, visual, ocular auditory symptoms. Patient has trouble with speech or swallowing. Patient denies trouble walking however I observed him walking in from the entrance and he is dragging his left leg slightly. Patient denies chest pain, shortness of breath, nausea or vomiting. Patient has no other symptoms. 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 DDD (degenerative disc disease) ED (erectile dysfunction) Elevated TSH Essential hypertension Fatigue Gastritis GERD (gastroesophageal reflux disease) History of colon polyps Polymyalgia rheumatica RBBB (right bundle branch block) Seasonal allergies Sleep apnea Home Medications hydrochlorothiazide 12.5 mg capsule 12.5 mg PO DAILY 09/17/16 [History Last Taken Unknown] nifedipine 60 mg tablet,extended release 24 hr 60 mg PO DAILY 09/17/16 [History Last Taken 09/20/16 07:30] omeprazole 20 mg capsule,delayed release 20 mg PO DAILY 09/17/16 [History Last Taken Unknown] citalopram 10 mg tablet 10 mg PO DAILY 07/08/21 [History Last Taken Unknown] acetaminophen 500 mg tablet 500 mg PO Q6H PRN pain 08/18/22 [History Last Taken Unknown] rosuvastatin 10 mg tablet 10 mg PO DAILY 08/18/22 [History Last Taken Unknown] Allergy/AdvReac Type Severity Reaction Status Date / Time No Known Allergies Allergy Verified 10/20/23 08:52 Family History Mother CVA (cerebral vascular accident) Hypertension Surgical History History of back surgery (~11/16/19) History of esophagogastroduodenoscopy (EGD) History of hand surgery History of Mohs micrographic surgery for skin cancer Hx of bilateral cataract extraction Hx of colonoscopy Hx of left inguinal hernia repair Hx of tonsillectomy Status post biopsy of thyroid gland (~03/28/19) Social History (Updated 11/04/23 @ 22:[address] Karri Linda MD) household members: spouse Smoking Status: Never smoker alcohol intake: current alcohol intake frequency: a few times a week substance use type: does not use caffeine: Yes what type of physical activity do you participate in: none frequency: does not exercise ROS ROS ED Constitutional Constitutional ED: Denies weakness Eyes Eyes: Denies blurry vision, change in vision or diplopia Cardiovascular Cardiovascular: Denies chest pain or palpitations Respiratory/Chest Respiratory/Chest: Denies cough, dyspnea or dyspnea on exertion Gastrointestinal Gastrointestinal: Denies abdominal pain, nausea or vomiting Musculoskeletal Musculoskeletal: Denies back pain or neck pain Integumentary Denies rash Neurologic Neurologic: Reports paresthesias and weakness Hematologic/Lymphatic Hematologic/Lymphatic: Denies easy bleeding or easy bruising EXAM Physical Exam Const Vital Signs: 11/04/23 22:12 11/04/23 22:15 11/04/23 22:34 Temperature 98 F 97.6 F L Temperature Source Temporal Temporal Pulse Rate 97 86 Respiratory Rate 18 20 H Blood Pressure 163/91 H 163/91 H 135/115 H Blood Pressure Mean 115 115 121 Pulse Ox 99 96 Oxygen Delivery Method Room Air Room Air 11/04/23 22:35 11/04/23 22:43 Temperature Temperature Source Pulse Rate 76 Respiratory Rate 17 Blood Pressure 154/73 H Blood Pressure Mean 100 Pulse Ox 95 Oxygen Delivery Method Room Air Room Air Positive well nourished and well developed General Appearance ED: well developed and NAD HEENT Reports moist mucous membranes atraumatic Nose: other Other Details: Normal Eyes PERRL and EOMs intact bilaterally Eyes Narrative: There is no nystagmus. There is no visual field cut. General Eye ED: Negative for pale conjunctiva or scleral icterus Neck no lymphadenopathy, supple and no JVD Neck Narrative: There are no carotid bruits. Resp normal respiratory effort and clear to auscultation bilaterally Cardio no murmurs Rate: regular rate Rhythm: regular rhythm GI normal to inspection, nondistended, normoactive bowel sounds, soft to palpation, non-tender, non-distended and no masses Extremity normal to inspection General Extremety ED: Negative for deformity or edema General Extremity: Negative for deformity or edema Neuro oriented x3, CN's II-XII intact bilaterally and No no sensory deficits noted Naina Coma Scale: document GCS findings Spontaneous Obeys Commands Oriented 15 Sensorium / Orientation: alert Speech: speech normal Gait (Neuro): Negative for normal gait Sensory Exam: sensory level loss detected Motor Exam: Negative for strength 5/5 throughout Psych mental status grossly normal Skin no wounds General Skin Exam: Negative for jaundice Lesions: no lesions Rashes: no rashes NIHSS NIHSS Initial: 1a Level of Consciousness: 0 1b LOC Questions (Score 2 if aphasic/stupor): 0 1c LOC Commands (Only score 1st attempt): 0 2 Best Gaze (If aphasic, use reflexive mvmts.): 0 3 Visual: 0 4 Facial Palsy: 0 5 Motor Arm Left: 1 6 Motor Leg Right: 0 6 Motor Leg Left: 1 7 Limb ataxia (Only + if out of proportion): 0 8 Sensory (Aphasia/stupor=0 or 1, coma=2): 1 9 Best Language: 0 10 Dysarthria (mute, coma=2, intubated=UN): 0 Total Score: 3 MDM MDM MDM Narrative Medical decision making narrative: Stroke team initiated. Stroke order set was initiated. Patient's blood pressure is elevated. Will allow for permissive hypertension. Patient has left-sided symptoms. His NIH is 3. Spoke to . He is never had a stroke before. History & Record Review Additional record(s) reviewed:: Prior outpatient record (Patient had office visit I was available for review October [address] Eliel Almeida. He was evaluated 2018 for thyroid nodule by Dr. Hunter.), Prior ED visit and Prior labs Lab Data Attestation: I reviewed the patient's lab results. Lab results narrative: CBC is unremarkable. Blood sugar is 130. Labs: Laboratory Results - last 24 hr 11/04/23 11/04/23 22:13 22:20 WBC 9.4 RBC 4.87 Hgb 14.7 Hct 44.7 MCV 91.8 MCH 30.2 MCHC 32.9 RDW Std Deviation 43.2 RDW Coeff of Shelli 12.8 Plt Count 303 MPV 9.9 Immature Gran % (Auto) 0.300 Neut % (Auto) 45.9 L Lymph % (Auto) 39.8 [place] % (Auto) 10.0 Eos % (Auto) 2.9 Baso % (Auto) 1.1 H Absolute Neuts (auto) 4.3 Absolute Lymphs (auto) 3.74 Nucleated RBC % 0 Atypical Lymphocytes 2+ Platelet Estimate ADEQUATE RBC Morphology N CHROM Anisocytosis RARE Macrocytosis RARE PT 14.0 INR 1.1 APTT 26.8 Sodium 140 Potassium 3.6 Chloride 104 Carbon Dioxide 29.0 Anion Gap 7 BUN 29 H Creatinine 1.39 H Estim Creat Clear Calc 43.97 Est GFR (MDRD) Af Amer 64 Est GFR (MDRD) Non-Af 53 L BUN/Creatinine Ratio 20.9 H Glucose 118 H Calcium 9.4 Troponin I High Sens 5 POC Glucose 130 H Radiography Chest X-Ray - ED: 1 View, Read by ED Physician, Heart, Mediastinum, Bony Structures, No Acute Disease and Chronic Changes (Lung parenchyma. Independent reviewed interpreted by me 07/30/2004) EKG Initial EKG: Attestation: I personally reviewed and interpreted this EKG as follows: Interpretation: Sinus Rhythm (Rate is 76. There is right bundle branch block. MN interval is 176 ms. QRS duration 50 ms. QT duration 436 ms. [place] is normal.) Management Discussion w/another healthcare provider: Natural Science Manager (Dr. Barba the neurologist at [facility]. She reviewed images. No abnormality noted. Patient to be admitted for local workup. Her NIH is 1. His muscle weakness has not proved/resolved.) Discharge Plan Dx/Rx/DC Orders Clinical Impression: Paresthesia of left arm and leg, Essential hypertension, HLD (hyperlipidemia), Facial paresthesia, Acute left-sided weakness Disposition Disposition: [facility]
[2023-11-04 22:32] LABS: Absolute Lymphocyte Count 3.74 X10^3/uL (0.83-4.51); Absolute Neutrophil Count 4.3 X10^3/uL (2.0-7.7); Basophil% 1.1 % (0-1); Eosinophil# 0.27 X10^3/uL; Eosinophils% 2.9 % (0-5); Hematocrit 44.7 % (40-54); Hemoglobin 14.7 g/dL (13.0-16.5); Lymphocyte # 3.74 X10^3/ul (0.83-4.51); Lymphocyte % 39.8 % (19-41); Mean Corp Hgb Conc 32.9 g/dL (32-36); Mean Corpuscular Hgb 30.2 pg (27.0-32.0); Mean Corpuscular Volume 91.8 fL (80-94); Mean Platelet Vol. 9.9 fl (6.2-12.0); Monocyte# 0.94 X10^3/uL; NRBC Flagged by Analyzer 0 % (0-5); Neutrophil # 4.32 X10^3/uL (2.7-7.7); Neutrophil % 45.9 % (47-70); POSITIVE MORPHOLOGY YES; Platelet Count 303 K/mm3 (150-450); RBC Distribution Width CV 12.8 % (11.6-14.6); RBC Distribution Width SD 43.2 fl (35.1-43.9); Red Blood Count 4.87 M/mm3 (4.6-6.2); White Blood Count 9.4 K/mm3 (4.4-11.0)
[2023-11-04 22:33] LABS: Bedside Glucose 130 mg/dL (74-106)
[2023-11-04 22:34] VITALS: BP 135/115; PULSE 86; RESP 20; O2SAT 96
[2023-11-04 22:41] LABS: International Normalized Ratio 1.1
[2023-11-04 22:42] LABS: Differential Indicated SCAN CRITERIA MET; Partial Thromboplast Time 26.8 Seconds (24.1-36.2)
[2023-11-04 22:43] VITALS: BP 154/73; PULSE 76; RESP 17; O2SAT 95
--- NOTE | 2023-11-04 22:50 | RAD_ITS ---
INDICATION: Neuro deficit, acute, stroke suspected EXAMINATION/TECHNIQUE: X-RAY - XR Chest 1 View COMPARISON: FINDINGS: LINES/DEVICES: None. LUNGS: No consolidation, edema or effusion. No pneumothorax. MEDIASTINUM AND CARDIOVASCULAR STRUCTURES: Cardiac silhouette not enlarged. Central airways and mediastinal contour are unremarkable. BONES AND SOFT TISSUES: Unremarkable. RAD/Chest 1 View IMPRESSION: No radiographic evidence of acute cardiopulmonary disease. Electronically Signed: Quinton Capps DO at 23:15 EDT ,
[2023-11-04 22:53] LABS: Anion Gap 7 (5-15); Anisocytosis RARE; Atypical Lymphocyte 2+ %; BUN 29 mg/dL (7-18); BUN/Creat Ratio 20.9 RATIO (10-20); Calcium,Total 9.4 mg/dL (8.5-10.1); Chloride 104 mmol/L (98-107); Creatinine, Serum 1.39 mg/dL (0.70-1.30); EST Glomerular Filtration Rate 53 mL/min (>60); Est Glom Filt Rate - Afr Amer 64 mL/min (>60); Estimated Creatinine Clearance 43.97 ml/min; Glucose 118 mg/dL (74-106); Platelet Estimate ADEQUATE (ADEQ); Potassium 3.6 mmol/L (3.5-5.1); Red Cell Morphology N CHROM NORMAL (NORM C&C); Sodium Level 140 mmol/L (136-145); Troponin-I HS 5 pg/mL (3.0-78.0)
[2023-11-04 22:54] LABS: Macrocytosis RARE
--- NOTE | 2023-11-04 23:03 | PCM.HP.STD ---
[facility] - General General Date of Admission: 11/04/23 Date of Service: 11/04/23 Chief Complaint: Left-sided Numbness and Weakness. HPI Narrative MAGDALENE DIOR, is a 78 M with a past medical history of essential hypertension, hyperlipidemia, overweight; with BMI of 28.1 this admission, PHILIP, history of GERD; with Hoff's esophagus, PMR, history of benign follicular colloid nodule of thyroid; s/p thyroid biopsy (2019), ED, history of bilateral cataracts; s/p extraction, generalized anxiety, history of Left inguinal hernia repair, DDD; with history of back surgery and OA who presents to [facility] ER complaining of Left-sided numbness and weakness. Mr. Dior reports his symptoms began approximately 50 minutes prior to arrival with the abrupt-onset of Left facial numbness and Left arm and Leg weakness with difficult ambulation noted by ER physician upon presentation. He denies related headache, slurred speech, expressive aphasia, receptive aphasia, nausea, vomiting or diaphoresis. In the ER a 'stroke alert' was initiated with help from [facility] teleneurology that is greatly appreciated with patient's symptoms resolving spontaneously with an initial; NIH score of 3 now down to 1 consistent with suspected TIA and he was then admitted to the CDU under observation status for a stay that is expected to be less than 2 midnights. 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 DDD (degenerative disc disease) ED (erectile dysfunction) Elevated TSH Essential hypertension Fatigue Gastritis GERD (gastroesophageal reflux disease) History of colon polyps Polymyalgia rheumatica RBBB (right bundle branch block) Seasonal allergies Sleep apnea Home Medications hydrochlorothiazide 12.5 mg capsule 12.5 mg PO DAILY 09/17/16 [History Last Taken Unknown] nifedipine 60 mg tablet,extended release 24 hr 60 mg PO DAILY 09/17/16 [History Last Taken 09/20/16 07:30] omeprazole 20 mg capsule,delayed release 20 mg PO DAILY 09/17/16 [History Last Taken Unknown] citalopram 10 mg tablet 10 mg PO DAILY 07/08/21 [History Last Taken Unknown] acetaminophen 500 mg tablet 500 mg PO Q6H PRN pain 08/18/22 [History Last Taken Unknown] rosuvastatin 10 mg tablet 10 mg PO DAILY 08/18/22 [History Last Taken Unknown] clotrimazole-betamethasone 1 %-0.05 % topical cream 1 applic topical BID ANTIFUNGAL 11/05/23 [History Last Taken Unknown] Allergy/AdvReac Type Severity Reaction Status Date / Time No Known Allergies Allergy Verified 10/20/23 08:52 Family History Mother Hypertension CVA (cerebral vascular accident) Diverticulitis Surgical History History of back surgery (~11/16/19) History of esophagogastroduodenoscopy (EGD) History of hand surgery History of Mohs micrographic surgery for skin cancer Hx of bilateral cataract extraction Hx of colonoscopy Hx of left inguinal hernia repair Hx of tonsillectomy Status post biopsy of thyroid gland (~03/28/19) Social History household members: spouse housing: house number of children: 2 service: No 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 HENT: Denies headache, denies stuffy nose, denies sore throat EYES: Denies changes in vision or discharge from eyes Resp: Denies cough, denies shortness of breath Cardiac: Denies chest pain, palpitations or heart racing. GI: Denies abdominal pain, denies changes in bowel, denies nausea or vomiting : Denies changes in urination Extremity: Denies swelling Musculoskeletal: Feels somewhat generally weak and unwell but denies arthralgias or myalgias Neuro: Patient admits to paresthesias of the left face and arm and transient mild weakness of the left leg as per HPI. Heme: Denies any bleeding or bruising Skin: Denies rashes Psychiatric: No complaints voiced related to uncontrolled depression or anxiety. Endocrine: No polyuria, polydipsia or polyphagia. The rest of the 14 point ROS was negative except for positives in HPI. Vital Signs Vital Signs Vital Signs: 11/04/23 22:12 11/04/23 22:15 11/04/23 22:34 Temperature 98 F 97.6 F L Temperature Source Temporal Temporal Pulse Rate 97 86 Respiratory Rate 18 20 H Blood Pressure 163/91 H 163/91 H 135/115 H Blood Pressure Mean 115 115 121 Pulse Ox 99 96 Oxygen Delivery Method Room Air Room Air 11/04/23 22:35 11/04/23 22:43 Temperature Temperature Source Pulse Rate 76 Respiratory Rate 17 Blood Pressure 154/73 H Blood Pressure Mean 100 Pulse Ox 95 Oxygen Delivery Method Room Air Room Air Weight Weight: 174 lb Body Mass Index (BMI) 28.0 Physical Exam Const alert, oriented x3, no apparent distress, average body habitus and healthy appearing General Appearance: cooperative HEENT normocephalic, head/scalp atraumatic, hearing grossly normal bilaterally and moist oral mucous membranes Eyes PERRL and EOMs intact bilaterally Neck no lymphadenopathy and supple Resp normal respiratory effort, no retractions, no use of accessory muscles and clear to auscultation bilaterally Cardio regular rate and regular rhythm GI normal to inspection, nondistended, normoactive bowel sounds, soft to palpation, non-tender and non-distended Extremity normal to inspection, full ROM and no clubbing, cyanosis or edema Skin Skin Narrative: Patient has no evidence of jaundice or rash. Neuro oriented x3, CN's II-XII intact bilaterally and moves all extremities Neuro Narrative: Mild residual weakness in LLE. Sensorium / Orientation: awake, alert, oriented to person, oriented to place and oriented to time Speech: speech normal Psych affect normal Results Medical Records Data Attestation: I reviewed the patient's medical records Lab / Micro Data Attestation: I reviewed the patient's lab results. 11/04/23 22:20 11/04/23 22:20 Labs: Laboratory Results - last 24 hr 11/04/23 22:13: POC Glucose 130 H 11/04/23 22:20: WBC 9.4, RBC 4.87, Hgb 14.7, Hct 44.7, MCV 91.8, MCH 30.2, MCHC 32.9, RDW Std Deviation 43.2, RDW Coeff of Shelli 12.8, Plt Count 303, MPV 9.9, Immature Gran % (Auto) 0.300, Neut % (Auto) 45.9 L, Lymph % (Auto) 39.8, [place] % (Auto) 10.0, Eos % (Auto) 2.9, Baso % (Auto) 1.1 H, Absolute Neuts (auto) 4.3, Absolute Lymphs (auto) 3.74, Nucleated RBC % 0, Atypical Lymphocytes 2+, Platelet Estimate ADEQUATE, RBC Morphology N CHROM, Anisocytosis RARE, Macrocytosis RARE, PT 14.0, INR 1.1, APTT 26.8, Sodium 140, Potassium 3.6, Chloride 104, Carbon Dioxide 29.0, Anion Gap 7, BUN 29 H, Creatinine 1.39 H, Estim Creat Clear Calc 43.97, Est GFR (MDRD) Af Amer 64, Est GFR (MDRD) Non-Af 53 L, BUN/Creatinine Ratio 20.9 H, Glucose 118 H, Calcium 9.4, Troponin I High Sens 5 Imaging [facility] Imaging Services [address] [place] [address] STROKE Brain/Head without Cont MR#: [id number] Acct: [id number] Name: MAGDALENE DIOR Rep #: [id number] : 1945 M 78 From: Quinton Capps DO PCP: Dr. Mat Jacobs DO Status: REG ER Study: STROKE Brain/Head without Cont Date of Exam: 11/04/23 Exam# [id number] Ordering Dr: Karri Linda MD INDICATION: cva EXAMINATION: CT BRAIN - CT Head Stroke Protocol W/O Contrast Injection TECHNIQUE: Multiple axial images were obtained of the head without intravenous contrast. A radiation dose optimization technique was used for this scan. IV Contrast dosage and agent: None. RADIATION DOSAGE (If Supplied By Facility): CTDIvol = ( 44.99 ) mGy, DLP = ( 846.73 ) mGycm COMPARISON: FINDINGS: BRAIN PARENCHYMA: No intra- or extra-axial hemorrhage. No evidence of acute infarct. No intracranial mass or mass effect. Mild age-related white matter microangiopathic ischemic changes. Posterior fossa structures are unremarkable. CSF SPACES: Prominent ventricles and extra-axial spaces with mild atrophy.. No hydrocephalus. Basal cisterns are patent. CALVARIUM, SKULL BASE, PARANASAL SINUSES AND MASTOID AIR CELLS: Clear. No discrete lytic or blastic abnormalities. ORBITS: Both globes, extraocular muscles, optic nerves and retrobulbar fat appear unremarkable. ASPECTS Score for Acute Strokes: 10 CT/STROKE Brain/Head without Cont IMPRESSION: Age-related changes. N.B. : The above Results were Read Back by Quinton Capps DO to Karri Linda MD, and understanding confirmed on 11/04/2023 22:58:24 (ET). Electronically Signed: Quinton Capps DO at 22:44 EDT Reading Location ID and State: [address] [place] [address] Tel [phone], Service support , CC: Dr. Mat Jacobs DO; Dr. Karri Linda MD ~ Sql Server Architect: Signed Assessment & Plan Assessment/Plan (1) TIA (transient ischemic attack): (2) Acute left-sided weakness: (3) Facial paresthesia: (4) Paresthesia of left arm and leg: (5) Essential hypertension: (6) HLD (hyperlipidemia): QUALIFIERS: Hyperlipidemia type: unspecified Qualified Code(s): E78.5 - Hyperlipidemia, unspecified PLAN: Plan 1. Suspected TIA; with transient Left-sided numbness and weakness - Admit to CDU under observation status. Check MRI of the brain to evaluate for possible CVA. Check carotid doppler to evaluate for stenosis. Check echocardiogram to evaluate LVEF. Continue statin and add ECASA. Check Lipid Profile and HgbA1c to complete his metabolic evaluation. [facility] teleneurology is greatly appreciated. 2. Essential hypertension - Hold scheduled antihypertensives until CVA definitively ruled out on MRI to allow for 'permissive hypertension'. 3. Hyperlipidemia Resume statin and check Lipid Profile. 4. Overweight; with BMI of 28.1 this admission plus PHILIP - Weight loss will be recommended and nocturnal CPAP will be offered. 5. History of GERD; with Hoff's esophagus - Resume PPI as previous. 6. PMR - Noted with no evidence of flare at this time. Check ESR. 7. History of benign follicular colloid nodule of thyroid; s/p thyroid biopsy (2019) - Noted. Check TSH in light of #1. 8. ED - Noted. 9. History of bilateral cataracts; s/p extraction - Stable. 10. Generalized anxiety - Give low-dose Xanax prn for breakthrough symptoms. 11. History of Left inguinal hernia repair - Noted. 12. DDD; with history of back surgery - Noted. 13. OA - Give Tylenol prn. 14. DVT prophylaxis - Lovenox 40 mg sq daily. Total time: Approximately 70 minutes. Charges/Coding Visit Charges OBSV E&M: 51236 Observ/hosp same date L2
[2023-11-04 23:12] VITALS: BP 116/97; PULSE 69; RESP 17; O2SAT 97
[2023-11-04 23:13] VITALS: BP 116/97; BP 149/70; PULSE 68; RESP 18; RESP 20; TEMP 36.7; O2SAT 94
--- NOTE | 2023-11-04 23:31 | ECHOD_ITS ---
Reason For Study: TIA/Stroke Procedure This was a 2D Doppler, Color Flow transthoracic echocardiogram. Exam performed portable in patient room. Left Ventricle Normal size and thickness. The left ventricular ejection fraction is 65 %. Normal diastology for age. Right Ventricle Normal right ventricle. Atria The left and right atria are normal. Lipomatous hypertrophy of the atrial septum. Bubble contrast study is negative for PFO/ASD. Mitral Valve Trivial mitral valve insufficiency. Tricuspid Valve Mild tricuspid valve insufficiency. Right ventricular systolic pressure estimated to be 35 mmHg. Aortic Valve Trisinus/trileaflet aortic valve. Trivial aortic valve insufficiency. Pulmonic Valve The pulmonic valve is not well visualized. Trivial pulmonic valve insufficiency. Great Vessels Mildly dilated aortic root. Pericardium/Pleural No pericardial effusion. Medication Performed a rapid injection of agitated mix of 9 cc saline and 1cc air to assess for atrial septal defect. MMode/2D Measurements & Calculations LVIDd: 3.6 cm IVSd: 0.99 cm Ao root diam: 3.5 cm LVIDs: 1.9 cm LVPWd: 1.0 cm RVDd: 3.8 cm FS: 47.8 % LAV(MOD-bp): 46.8 ml LVAd ap4: 24.2 cm2 SV(MOD-sp4): 45.5 ml LAV(MOD-bp) Indexed: 24.8 ml/m2 LVLd ap4: 7.2 cm LAV(MOD-sp2): 33.0 ml EDV(MOD-sp4): 66.3 ml LAV(MOD-sp4): 61.1 ml EDV(sp4-el): 68.7 ml LVAs ap4: 12.1 cm2 LVLs ap4: 5.8 cm ESV(MOD-sp4): 20.7 ml ESV(sp4-el): 21.2 ml EF(MOD-sp4): 68.7 % EF(sp4-el): 69.2 % SV(sp4-el): 47.5 ml LA A4 area: 21.1 cm2 LA dimension(2D): 3.4 cm RA A4 area: 10.9 cm2 TAPSE: 2.4 cm Time Measurements MV dec time: 0.24 sec Doppler Measurements & Calculations MV E max tonio: 85.6 cm/sec Lat Peak E' Tonio: 9.0 cm/sec Med Peak E' Tonio: 6.9 cm/sec MV A max tonio: 93.6 cm/sec E/E' lat: 9.5 E/E' med: 12.4 MV E/A: 0.92 MV dec slope: 362.9 cm/sec2 Ao V2 max: 167.3 cm/sec LV V1 max: 166.6 cm/sec Ao max P.2 mmHg LV V1 max P.1 mmHg Ao V2 mean: 107.5 cm/sec Ao mean P.4 mmHg Ao V2 VTI: 37.0 cm PA V2 max: 115.3 cm/sec TR max tonio: 273.2 cm/sec TR max P.9 mmHg ECHO/Echo Complete Interpretation Summary The left ventricular ejection fraction is 65 %. Lipomatous hypertrophy of the atrial septum. Bubble contrast study is negative for PFO/ASD. Mild tricuspid valve insufficiency. Mildly dilated aortic root. Large hepatic cyst noted. Consider ultrasound liver for further evaluation. Ordering Physician: John Jones Referring Physician: Mat Jacobs Performed By: Hilaria Hutchinson, MADELAINE, RVT
[2023-11-05] VITALS (7 sets, daily range): BP systolic 121–156; BP diastolic 60–76; PULSE 58–72; RESP 16–18; TEMP 36.1–37.2; O2SAT 94–97; BMI 28.1
[2023-11-05 00:13] LABS: Thyroid Stim Hormone (TSH) 4.85 uIU/mL (0.358-3.74)
[2023-11-05 00:15] LABS: Erythrocyte Sedimentation Rate 3 mm/hr (0-20)
[2023-11-05 00:28] LABS: Alcohol, Blood (Medical)-Serum < 3.0 mg/dL
[2023-11-05 01:01] LABS: Hemoglobin A1c 5.4 % (3.8-5.6)
[2023-11-05] MEDS: 0.9% Normal Saline (1000mL) 1,000 ML 50 ML IV (01:53)
[2023-11-05] MEDS: Aspirin 81 MG TAB.CHEW 162 MG PO (01:54)
[2023-11-05] MEDS: 0.9% Saline Lock 10 ML Syringe IV (01:56)
[2023-11-05] MEDS: Atorvastatin Calcium 20 MG Tablet PO (07:38)
[2023-11-05] MEDS: Citalopram 10 MG Tablet PO (07:38)
[2023-11-05] MEDS: Pantoprazole Sodium 20 MG Tablet PO (07:38)
[2023-11-05] MEDS: Aspirin 81 MG TAB.CHEW PO (07:38)
--- NOTE | 2023-11-05 07:57 | PN.HOSP_ITS ---
Reason for Visit Reason for Visit: Diagnoses Hyperlipidemia, unspecified (11/04/23) Transient cerebral ischemic attack, unspecified (11/04/23) Essential (primary) hypertension (11/04/23) Paresthesia of skin (11/04/23) Weakness (11/04/23) Subjective Subjective left sided weakness improved, though still has paresthesias over left shoulder. Objective Data Objective Data Vital Signs: Vital Signs Temp Pulse Resp BP Pulse Ox O2 Del Method 36.7 C 65 18 156/76 H 95 Room Air 11/05/23 07:45 11/05/23 07:45 11/05/23 07:45 11/05/23 07:45 11/05/23 07:45 11/05/23 07:49 Oxygen Delivery Method Room Air Weight: 79.1 kg Body Mass Index (BMI) 28.1 Intake & Output: Intake and Output for Last 24 Hours 11/03/23 11/04/23 11/05/23 23:59 23:59 23:59 Intake Total 200 / 200 Balance 200 / 200 Lab / Micro Data 11/05/23 06:35 11/05/23 06:35 Labs: Laboratory Results - last 24 hr 11/04/23 22:13: POC Glucose 130 H 11/04/23 22:20: WBC 9.4, RBC 4.87, Hgb 14.7, Hct 44.7, MCV 91.8, MCH 30.2, MCHC 32.9, RDW Std Deviation 43.2, RDW Coeff of Shelli 12.8, Plt Count 303, MPV 9.9, Immature Gran % (Auto) 0.300, Neut % (Auto) 45.9 L, Lymph % (Auto) 39.8, [place]key % (Auto) 10.0, Eos % (Auto) 2.9, Baso % (Auto) 1.1 H, Absolute Neuts (auto) 4.3, Absolute Lymphs (auto) 3.74, Nucleated RBC % 0, Atypical Lymphocytes 2+, Platelet Estimate ADEQUATE, RBC Morphology N CHROM, Anisocytosis RARE, Macrocytosis RARE, ESR 3, PT 14.0, INR 1.1, APTT 26.8, Sodium 140, Potassium 3.6, Chloride 104, Carbon Dioxide 29.0, Anion Gap 7, BUN 29 H, Creatinine 1.39 H , Estim Creat Clear Calc 43.97, Est GFR (MDRD) Af Amer 64, Est GFR (MDRD) Non-Af 53 L, BUN/Creatinine Ratio 20.9 H, Glucose 118 H, Hemoglobin A1c 5.4, Calcium 9.4, Troponin I High Sens 5, TSH 4.85 H 11/04/23 23:50: Ethyl Alcohol < 3.0 Radiography Diagnostic Testing: Radiology Impression Brain CT 11/04/23 22:13 IMPRESSION: Age-related changes. N.B. : The above Results were Read Back by Quinton Capps DO to Karri Linda MD, and understanding confirmed on 11/04/2023 22:58:24 (ET). Electronically Signed: Quinton Capps DO at 22:44 EDT , Head/Neck CTA 11/04/23 22:13 IMPRESSION: Negative CTA Carotid, and CTA Brain. N.B. : The above Results were Read Back by Quinton Capps DO to Karri Linda MD, and understanding confirmed on 11/04/2023 22:58:18 (ET). Electronically Signed: Quinton Capps DO at 22:55 EDT , Chest X-Ray 11/04/23 22:50 IMPRESSION: No radiographic evidence of acute cardiopulmonary disease. Electronically Signed: Quinton Capps DO at 23:15 EDT , Physical Exam Const alert and no apparent distress HEENT head/scalp atraumatic and moist oral mucous membranes Eyes PERRL and EOMs intact bilaterally Neck no lymphadenopathy Resp normal respiratory effort, no retractions, no use of accessory muscles and clear to auscultation bilaterally Extremity normal to inspection Neuro Sensorium / Orientation: awake and alert Assessment & Plan Assessment/Plan (1) TIA (transient ischemic attack): (2) Acute left-sided weakness: (3) Facial paresthesia: (4) Paresthesia of left arm and leg: (5) Essential hypertension: (6) HLD (hyperlipidemia): QUALIFIERS: Hyperlipidemia type: unspecified Qualified Code(s): E78.5 - Hyperlipidemia, unspecified PLAN: Plan Acute CVA * onset 15 minutes prior to arrival. concern for TIA/CVA. 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 Recommending increasing ASA to 325/d and clopidogrel 75d for 21 days and event monitor. * Check, echo, FLP. CTA H+N negative, no need for carotid duplex. * Continue ASA and atorvastatin. * Neurology to follow Chronic conditions: * Essential hypertension - hold home medications for now. * Hyperlipidemia Continue statin. * GERD with Hoff's esophagus: continue PPI * PMR - Noted with no evidence of flare at this time. ESR only 3 DVT prophylaxis - enoxaparin. Charges/Coding Visit Charges Inpatient E&M: 87518 Subs Hosp L2
[2023-11-05 08:05] LABS: Absolute Lymphocyte Count 2.12 X10^3/uL (0.83-4.51); Absolute Neutrophil Count 4.1 X10^3/uL (2.0-7.7); Basophil# 0.06 X10^3/uL; Basophil% 0.8 % (0-1); Eosinophil# 0.18 X10^3/uL; Eosinophils% 2.5 % (0-5); Hematocrit 40.4 % (40-54); Hemoglobin 13.6 g/dL (13.0-16.5); Lymphocyte # 2.12 X10^3/ul (0.83-4.51); Lymphocyte % 29.9 % (19-41); Mean Corp Hgb Conc 33.7 g/dL (32-36); Mean Corpuscular Hgb 30.6 pg (27.0-32.0); Mean Platelet Vol. 10.3 fl (6.2-12.0); Monocyte# 0.66 X10^3/uL; Monocyte% 9.3 % (0-10); NRBC Flagged by Analyzer 0 % (0-5); Neutrophil # 4.05 X10^3/uL (2.7-7.7); Neutrophil % 57.2 % (47-70); POSITIVE MORPHOLOGY YES; Platelet Count 251 K/mm3 (150-450); RBC Distribution Width CV 12.7 % (11.6-14.6); RBC Distribution Width SD 42.2 fl (35.1-43.9); Red Blood Count 4.44 M/mm3 (4.6-6.2); White Blood Count 7.1 K/mm3 (4.4-11.0)
[2023-11-05 08:25] LABS: Amphetamine Urine VISTA NEGATIVE (<1000 ng/mL); Barbiturate Urine VISTA NEGATIVE (< 200 ng/mL); Benzodiazepine Urine VISTA NEGATIVE (< 200 ng/mL); Cocaine Urine VISTA NEGATIVE (< 300 ng/mL); Ecstacy Urine VISTA NEGATIVE (< 500 ng/mL); Methadone Urine VISTA NEGATIVE (< 300 ng/mL); PCP Urine VISTA NEGATIVE (< 25 ng/mL); THC Urine VISTA NEGATIVE (< 50 ng/mL); Vista UDS pH Range 6
[2023-11-05 08:50] LABS: ALB/GLOB Ratio 1.1 RATIO (0.9-2.4); AST(SGOT) 24 U/L (15-37); Alanine Aminotransfer ALT/SGPT 22 U/L (16-61); Albumin, Serum 3.4 g/dL (3.2-5.0); Alkaline Phosphatase 84 U/L (45-117); Anion Gap 5 (5-15); BUN 25 mg/dL (7-18); BUN/Creat Ratio 21.7 RATIO (10-20); Calcium,Total 8.8 mg/dL (8.5-10.1); Chloride 105 mmol/L (98-107); Cholesterol 142 mg/dL (200); Creatinine, Serum 1.15 mg/dL (0.70-1.30); EST Glomerular Filtration Rate 66 mL/min (>60); Est Glom Filt Rate - Afr Amer 79 mL/min (>60); Glucose 97 mg/dL (74-106); High Density Lipoprotein 32 mg/dL; Magnesium 2.3 mg/dL (1.6-2.6); Phosphorus 2.4 mg/dL (2.5-4.9); Potassium 3.3 mmol/L (3.5-5.1); Protein, Total 6.4 g/dL (6.4-8.2); Sodium Level 138 mmol/L (136-145); Triglycerides 226 mg/dL; Very Low Density Lipoprotein 45 mg/dL (5-40)
--- NOTE | 2023-11-05 08:56 | CASEMGMT ---
Social Work Pt completed PHQ-9 w/SW. Pt scored a 0, no indications of depressive thoughts or feelings at this time. NGUYEN Stewart
[2023-11-05 08:59] LABS: Differential Indicated SCAN CRITERIA MET
[2023-11-05 09:58] LABS: Differential Comment SCANNED
--- NOTE | 2023-11-05 13:14 | PCM.DC.SUM ---
Providers Date of Admission: 11/04/23 Primary Care Physician: Dr. Mat Jacobs, Consultations 11/05/23 00:33 Consult: Tele-Neurology Routine Consulting Provider: [facility] Reason for Consult: Acute Ischemic Stroke/TIA EMERGENT Consult: No MD Notified: Yes Date Notified: 11/04/23 Time Notified: 23:26 Method of Notification: ED Physician Initiated Nursing Unit Staff Notify [facility] of Tele-Neurology Consult: Yes Reason For Visit: TIA; WITH TRANSIENT LEFT-SIDED NUMBNESS AND Diagnosis Discharge Diagnosis (1) TIA (transient ischemic attack): Status: Acute Code(s): G45.9 - Transient cerebral ischemic attack, unspecified (2) Acute left-sided weakness: Status: Acute Code(s): R53.1 - Weakness (3) Facial paresthesia: Status: Acute Code(s): R20.2 - Paresthesia of skin (4) Paresthesia of left arm and leg: Status: Acute Code(s): R20.2 - Paresthesia of skin (5) Essential hypertension: Status: Chronic Code(s): I10 - Essential (primary) hypertension (6) HLD (hyperlipidemia): Status: Acute Code(s): E78.5 - Hyperlipidemia, unspecified Qualifiers: Hyperlipidemia type: unspecified Qualified Code(s): E78.5 - Hyperlipidemia, unspecified Plan Acute CVA onset 15 minutes prior to arrival. concern for TIA/CVA. 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 Recommending increasing ASA to 325/d and clopidogrel 75d for 21 days and event monitor. Check, echo, FLP. CTA H+N negative, no need for carotid duplex. Continue ASA and atorvastatin. Neurology to follow Questionable hepatic cyst: Incidental finding on echocardiogram. Advised patient to follow-up with his primary care doctor to have an ultrasound to better characterize this. Chronic conditions: Essential hypertension - hold home medications for now. Hyperlipidemia Continue statin. GERD with Hoff's esophagus: continue PPI PMR - Noted with no evidence of flare at this time. ESR only 3 DVT prophylaxis - enoxaparin. Medications at Discharge Home Medications hydrochlorothiazide 12.5 mg capsule 12.5 mg PO DAILY 09/17/16 nifedipine 60 mg tablet,extended release 24 hr 60 mg PO DAILY 09/17/16 omeprazole 20 mg capsule,delayed release 20 mg PO DAILY 09/17/16 citalopram 10 mg tablet 10 mg PO DAILY 07/08/21 acetaminophen 500 mg tablet 500 mg PO Q6H PRN pain 08/18/22 aspirin 325 mg tablet 325 mg PO BREAKFAST #0 tabs 11/05/23 atorvastatin 40 mg tablet 40 mg PO QHS #30 tabs 11/05/23 clopidogrel 75 mg tablet 75 mg PO DAILY #21 tabs 11/05/23 clotrimazole-betamethasone 1 %-0.05 % topical cream 1 applic topical BID ANTIFUNGAL 11/05/23 Hospital Course Operations None Procedures 2-D Echocardiogram Summary of Care Provided Minutes Spent on Discharge: 32 Weight / BMI Weight Weight: 79.1 kg Body Mass Index (BMI) 28.1 ABG / Lab / Microbiology Data 11/05/23 06:35 11/05/23 06:35 Laboratory: Laboratory Results - last 24 hr 11/04/23 22:13: POC Glucose 130 H 11/04/23 22:20: WBC 9.4, RBC 4.87, Hgb 14.7, Hct 44.7, MCV 91.8, MCH 30.2, MCHC 32.9, RDW Std Deviation 43.2, RDW Coeff of Shelli 12.8, Plt Count 303, MPV 9.9, Immature Gran % (Auto) 0.300, Neut % (Auto) 45.9 L, Lymph % (Auto) 39.8, [place] % (Auto) 10.0, Eos % (Auto) 2.9, Baso % (Auto) 1.1 H, Absolute Neuts (auto) 4.3, Absolute Lymphs (auto) 3.74, Nucleated RBC % 0, Atypical Lymphocytes 2+, Platelet Estimate ADEQUATE, RBC Morphology N CHROM, Anisocytosis RARE, Macrocytosis RARE, ESR 3, PT 14.0, INR 1.1, APTT 26.8, Sodium 140, Potassium 3.6, Chloride 104, Carbon Dioxide 29.0, Anion Gap 7, BUN 29 H, Creatinine 1.39 H, Estim Creat Clear Calc 43.97, Est GFR (MDRD) Af Amer 64, Est GFR (MDRD) Non-Af 53 L, BUN/Creatinine Ratio 20.9 H, Glucose 118 H, Hemoglobin A1c 5.4, Calcium 9.4, Troponin I High Sens 5, TSH 4.85 H 11/04/23 23:50: Ethyl Alcohol < 3.0 11/05/23 06:35: WBC 7.1, RBC 4.44 L, Hgb 13.6, Hct 40.4, MCV 91.0, MCH 30.6, MCHC 33.7, RDW Std Deviation 42.2, RDW Coeff of Shelli 12.7, Plt Count 251, MPV 10.3, Immature Gran % (Auto) 0.300, Neut % (Auto) 57.2, Lymph % (Auto) 29.9, [place] % (Auto) 9.3, Eos % (Auto) 2.5, Baso % (Auto) 0.8, Absolute Neuts (auto) 4.1, Absolute Lymphs (auto) 2.12, Nucleated RBC % 0, Differential Comment SCANNED, Sodium 138, Potassium 3.3 L, Chloride 105, Carbon Dioxide 28.0, Anion Gap 5, BUN 25 H, Creatinine 1.15, Estim Creat Clear Calc 53.20, Est GFR (MDRD) Af Amer 79, Est GFR (MDRD) Non-Af 66, BUN/Creatinine Ratio 21.7 H, Glucose 97, Calcium 8.8, Phosphorus 2.4 L, Magnesium 2.3, Total Bilirubin 0.70, AST 24, ALT 22, Alkaline Phosphatase 84, Total Protein 6.4, Albumin 3.4, Globulin 3.0, Albumin/Globulin Ratio 1.1, Triglycerides 226 H, Cholesterol 142, LDL Cholesterol 65, VLDL Cholesterol 45 H, HDL Cholesterol 32 L, Free T4 0.80 11/05/23 07:52: Urine Opiates Screen NEGATIVE, Urine Methadone Screen NEGATIVE, Ur Barbiturates Screen NEGATIVE, Ur Phencyclidine Scrn NEGATIVE, Ur Amphetamines Screen NEGATIVE, MDMA (Ecstasy) Screen NEGATIVE, U Benzodiazepines Scrn NEGATIVE, Urine Cocaine Screen NEGATIVE, U Cannabinoids Screen NEGATIVE, Ur Drug Screen Comment Radiography Diagnostic Testing: Radiology Impression Brain CT 11/04/23 22:13 IMPRESSION: Age-related changes. N.B. : The above Results were Read Back by Quinton Capps DO to Karri Linda MD, and understanding confirmed on 11/04/2023 22:58:24 (ET). Electronically Signed: Quinton Capps DO at 22:44 EDT Reading Location ID and State: [facility] / [place] Tel [phone], Service support , Head/Neck CTA 11/04/23 22:13 IMPRESSION: Negative CTA Carotid, and CTA Brain. N.B. : The above Results were Read Back by Quinton Capps DO to Karri Linda MD, and understanding confirmed on 11/04/2023 22:58:18 (ET). Electronically Signed: Quinton Capps DO at 22:55 EDT , Chest X-Ray 11/04/23 22:50 IMPRESSION: No radiographic evidence of acute cardiopulmonary disease. Electronically Signed: Quniton Capps DO at 23:15 EDT , Echocardiogram 11/04/23 23:31 Interpretation Summary The left ventricular ejection fraction is 65 %. Lipomatous hypertrophy of the atrial septum. Bubble contrast study is negative for PFO/ASD. Mild tricuspid valve insufficiency. Mildly dilated aortic root. Large hepatic cyst noted. Consider ultrasound liver for further evaluation. Ordering Physician: John Jones Referring Physician: Mat Jacobs Performed By: Hilaria Hutchinson, MADELAINE, RVT Brain MRI 11/05/23 23:31 IMPRESSION: Involutional changes of the brain, as described above. Recent right parietal and occipital infarcts. No hemorrhage. Electronically Signed: Tristian Mcgraw MD at 12:11 EDT , D/C Instructions Discharge Diet: Low fat / Low cholesterol Meaningful Use Info Meaningful Use Meaningful Use Diagnoses (Choose all that apply): Ischemic CVA CVA Therapy Assessed for PT,OT and/or ST?: Yes Ischemic Stroke Antithrombotic order at d/c?: Yes Dx of Atrial fib/flutter?: No Anticoagulant at discharge?: No Reason anticoagulant not ordered: Treatment not Indicated Statin Dosing Therapy Reference: STATIN DOSE THERAPY REFERENCE: * Patients > 75 years receive moderate or high dose statin therapy. * Patients 75 years or YOUNGER should receive HIGH intensity statin dose unless contraindicated. You will be required to document reason for non-treatment if statin daily dose does not meet guidelines. HIGH DOSE STATIN THERAPY DAILY Atorvastatin > than or = to 40 mg Rosuvastatin > than or = to 20 mg Amlodipine + Atorvastatin > than or = to 2.5/40 mg Ezetimibe + Simvastatin 10/80 mg Simvastatin 80mg Statins at discharge?: Yes Primary Dx Acute Ischemic CVA?: Yes IV thrombolytic ordered during stay?: No Reason IV thrombolytic not ordered: Treatment not Indicated Discharge Plan Admission Admit Date/Time: 11/04/23 23:24 Primary Reason for Your Visit: Stroke Attending Provider: Bhavin Vicente Primary Care Provider: Mat Jacobs Consulting Providers: Simeon Zendejas; Alicia Kamara; Janeen Malin; Belle Morales; Saniya Dominguez; David Koch; Luz Marina Nevarez; Adrián Ochoa; Se Giang; Hortencia Pinzon; Dixon Garces; Elva Jang; Aston Mallory; Claudia Sierra Johnson; Rocael Hatch; Laurence Benton; Nura Ashby; Fatmata Barba; Shanna Bronson; John Jones Instructions Additional Instructions / Restrictions: You had a stroke. You will be on aspirin, clopidogrel and atorvastatin. You be on the clopidogrel (also known as Plavix) for 21 days and then discontinue. Do recommend that you follow-up with neurology as outpatient. Stated that you wish to follow-up with neurology through [facility]. If you can through your MyChart, see about setting up an appointment, if not then follow your primary care doctor to get that established. You also need to have a 30-day Event monitor. Incidentally, as noted on your echocardiogram that there may be a cyst (typically is just a benign fluid-filled sac). However, I would recommend getting further evaluation with an ultrasound of your liver to better evaluate that. You can arrange that through your primary care doctor. Discharge Orders/Prescriptions Prescriptions: New aspirin 325 mg Tablet 325 mg PO BREAKFAST Qty: 0 0RF clopidogrel 75 mg Tablet 75 mg PO DAILY Qty: 21 0RF atorvastatin 40 mg tablet 40 mg PO QHS Qty: 30 0RF Continued citalopram 10 mg tablet 10 mg PO DAILY acetaminophen 500 mg tablet 500 mg PO Q6H PRN (Reason: pain) nifedipine 60 MG tablet 60 mg PO DAILY hydrochlorothiazide 12.5 MG capsule 12.5 mg PO DAILY omeprazole 20 MG capsule 20 mg PO DAILY clotrimazole-betamethasone 1-0.05 % cream 1 applic TOPICAL BID Rx Instructions: UNTIL 11/09/23 X30 DAYS TOTAL Discontinued rosuvastatin 10 mg tablet 10 mg PO DAILY Other Ambulatory Orders: 30 Day Event Recorder Preventi (Urgent) Timeframe: 1 Day Facility: [facility] - Location: Cardiovascular Services Ordered By: Dr. Bhavin Vicente Referrals / Follow Up: Mat Jacobs DO [Primary Care Provider] - Within 2 Weeks Disposition Disposition (needs filled in before D/C Order can be placed): Home, Self Care Charges/Coding Visit Charges Inpatient E&M: 84102 Disch Hosp >30min
--- NOTE | 2023-11-05 14:43 | NURSING ---
discharge instructions given to patient and verbalized understanding. iv and telemetry removed. laboratory chief giving wheelchair escort out.
--- NOTE | 2023-11-05 14:54 | CON.PCM.NE_ITS ---
Assessment and Plan: Neuro Assessment/Plan Telestroke [facility] Progress Note 78 y/o man with h/o essential hypertension, hyperlipidemia, overweight; with BMI of 28.1 this admission, PHILIP, history of GERD; with Hoff's esophagus, PMR, history of benign follicular colloid nodule of thyroid; s/p thyroid biopsy (2019), ED, history of bilateral cataracts; s/p extraction, generalized anxiety, history of Left inguinal hernia repair, DDD; with history of back surgery and OA p/w transient Left-sided numbness and weakness. He denies related headache, slurred speech, expressive aphasia, receptive aphasia, nausea, vomiting or diaphoresis. In the ER a 'stroke alert' was initiated with help from [facility] that is greatly appreciated with patient's symptoms resolving spontaneously with an initial; NIH score of 3 now down to 1. He reports feeling better today with NIHSS-0. MRI Brain - right parietal/occipital strokes likely Right MCA/BIOMEDICAL TECHNICIAN strokes. Diagnosis: Right MCA/BIOMEDICAL TECHNICIAN stroke, cryptogenic Plan: Continue ASA and plavix for 21 days followed by ASA 325mg. Statin. Follow up TTE and either LINQ or Event monitor 30 days on discharge. 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 DVT prophylaxis. Follow up with neurology as an out patient. Control of vascular r isk factors. I personally attended this patient and spent a total time of 71 minutes evaluating this patient including clinical assessment, review of chart, medical history imaging, and determining appropriate treatment and workup. HPI Consult Data Date of Consult: 11/05/23 HPI Narrative HPI Narrative: 78 y/o man with h/o essential hypertension, hyperlipidemia, overweight; with BMI of 28.1 this admission, PHILIP, history of GERD; with Hoff's esophagus, PMR, history of benign follicular colloid nodule of thyroid; s/p thyroid biopsy (2019), ED, history of bilateral cataracts; s/p extraction, generalized anxiety, history of Left inguinal hernia repair, DDD; with history of back surgery and OA p/w transient Left-sided numbness and weakness. He denies related headache, slurred speech, expressive aphasia, receptive aphasia, nausea, vomiting or diaphoresis. In the ER a 'stroke alert' was initiated with help from [facility] that is greatly appreciated with patient's symptoms resolving spontaneously with an initial; NIH score of 3 now down to 1. He reports feeling better today with NIHSS-0. MRI Brain - right parietal/occipit al strokes likely Right MCA/BIOMEDICAL TECHNICIAN strokes. [facility] Medical History Anxiety Arthritis Hoff esophagus benign follicular colloid nodule thyroid DDD (degenerative disc disease) ED (erectile dysfunction) Elevated TSH Essential hypertension Fatigue Gastritis GERD (gastroesophageal reflux disease) History of colon polyps Polymyalgia rheumatica RBBB (right bundle branch block) Seasonal allergies Sleep apnea Home Medications hydrochlorothiazide 12.5 mg capsule 12.5 mg PO DAILY blood pressure / swelling 09/17/16 [History Last Taken Unknown] nifedipine 60 mg tablet,extended release 24 hr 60 mg PO DAILY blood pressure 09/17/16 [History Last Taken 09/20/16 07:30] omeprazole 20 mg capsule,delayed release 20 mg PO DAILY stomach acid 09/17/16 [H istory Last Taken Unknown] citalopram 10 mg tablet 10 mg PO DAILY mental health 07/08/21 [History Last Taken Unknown] acetaminophen 500 mg tablet 500 mg PO Q6H PRN pain 08/18/22 [History Last Taken Unknown] aspirin 325 mg tablet 325 mg PO BREAKFAST #0 tabs 11/05/23 [Rx Last Taken Unknown] atorvastatin 40 mg tablet 40 mg PO QHS #30 tabs 11/05/23 [Rx Last Taken Unknown] clopidogrel 75 mg tablet 75 mg PO DAILY #21 tabs 11/05/23 [Rx Last Taken Unknown] clotrimazole-betamethasone 1 %-0.05 % topical cream 1 applic topical BID ANTIFUNGAL 11/05/23 [History Last Taken Unknown] Allergy/AdvReac Type Severity Reaction Status Date / Time No Known Allergies Allergy Verified 10/20/23 08:52 Family History Mother Hypertension CVA (cerebral vascular accident) Diverticulitis Surgical History History of back surgery (~11/16/19) History of esophagogastroduodenoscopy (EGD) History of hand surgery History of Mohs micrographic surgery for skin cancer Hx of bilateral cataract extraction Hx of colonoscopy Hx of left inguinal hernia repair Hx of tonsillectomy Status post biopsy of thyroid gland (~03/28/19) Social History household members: spouse housing: house number of children: 2 current occupation: [employer] Smoking Status: Never smoker alcohol intake: current alcohol intake frequency: a few times a week substance use type: does not use caffeine: Yes what type of physical activity do you participate in: none frequency: does not exercise Vital Signs Vital Signs Vital Signs: 11/04/23 22:12 11/04/23 22:15 11/04/23 22:34 Temperature 98 F 97.6 F L Temperature Source Temporal Temporal Pulse Rate 97 86 Pulse Strength Respiratory Rate 18 20 H Respiratory Effort Respiratory Depth Respiratory Pattern Blood Pressure 163/91 H 163/91 H 135/115 H Blood Pressure Mean 115 115 121 Blood Pressure Source Blood Pressure Position Blood Pressure Location Pulse Ox 99 96 Oxygen Delivery Method Room Air Room Air 11/04/23 22:35 11/04/23 22:43 11/04/23 23:13 Temperature 98.0 F Temperature Source Pulse Rate 76 68 Pulse Strength Respiratory Rate 17 18 Respiratory Effort Respiratory Depth Respiratory Pattern Blood Pressure 154/73 H 149/70 H Blood Pressure Mean 100 96 Blood Pressure Source Blood Pressure Position Blood Pressure Location Pulse Ox 95 94 Oxygen Delivery Method Room Air Room Air 11/04/23 23:12 11/04/23 23:13 11/05/23 00:00 Temperature Temperature Source Pulse Rate 69 68 64 Pulse Strength Respiratory Rate 17 20 H 17 Respiratory Effort Respiratory Depth Respiratory Pattern Blood Pressure 116/97 H 116/97 H 132/69 H Blood Pressure Mean 103 103 90 Blood Pressure Source Blood Pressure Position Blood Pressure Location Pulse Ox 97 94 96 Oxygen Delivery Method Room Air Room Air Room Air 11/05/23 00:00 11/05/23 00:36 11/05/23 01:50 Temperature 96.9 F L Temperature Source Temporal Pulse Rate 66 65 Pulse Strength Respiratory Rate 16 17 Respiratory Effort Respiratory Depth Respiratory Pattern Blood Pressure 132/69 H 150/76 H Blood Pressure Mean 90 100 Blood Pressure Source Monitor Blood Pressure Position Semi-Fowlers Blood Pressure Location Right Arm Pulse Ox 96 97 Oxygen Delivery Method Room Air Room Air Room Air 11/05/23 04:30 11/05/23 00:45 11/05/23 05:31 Temperature 97.8 F Temperature Source Oral Pulse Rate 58 L Pulse Strength Respiratory Rate 16 Respiratory Effort Normal Non-Labored Normal Non-Labored Respiratory Depth Normal Respiratory Pattern Normal Blood Pressure 121/60 H Blood Pressure Mean 80 Blood Pressure Source Monitor Blood Pressure Position Supine Blood Pressure Location Right Arm Pulse Ox 95 Oxygen Delivery Method Room Air Room Air Room Air 11/05/23 07:45 11/05/23 07:46 11/05/23 07:49 Temperature 98.0 F Temperature Source Oral Pulse Rate 65 Pulse Strength Normal (2+) Respiratory Rate 18 Respiratory Effort Normal Non-Labored Respiratory Depth Normal Respiratory Pattern Normal Blood Pressure 156/76 H Blood Pressure Mean 102 Blood Pressure Source Monitor Blood Pressure Position Semi-Fowlers Blood Pressure Location Right Arm Pulse Ox 95 Oxygen Delivery Method Room Air Room Air 11/05/23 07:30 11/05/23 09:33 11/05/23 11:25 Temperature 99.0 F Temperature Source Oral Pulse Rate 72 Pulse Strength Respiratory Rate 18 Respiratory Effort Respiratory Depth Respiratory Pattern Blood Pressure 151/70 H Blood Pressure Mean 97 Blood Pressure Source Monitor Blood Pressure Position Semi-Fowlers Blood Pressure Location Right Arm Pulse Ox 94 95 96 Oxygen Delivery Method Room Air Room Air Weight Weight: 79.1 kg Body Mass Index (BMI) 28.1 EEG Results Procedure Details EEG Procedure Details: MAGDALENE KWOK is a 78 year old M with a past medical history of , who presents for evaluation of Electroencephalogram on DATE at TIME NIHSS NIHSS Nursing Documentation NIHSS Nursing Documentation: NIHSS: Ischemic Stroke/TIA Start: 11/05/23 00:33 Text: For PCU Patients: NIH and Neuro Check every 4 Status: Discharge hours, PRN and with change in RN caregiver. Freq: [id number] Protocol: Activity Type Activity Date Activity User E-sign Co-sign Detail Recorded Client Recorded Date Recorded By Document 11/05/23 11:25 [facility] Desktop 11/05/23 11:27 [facility] 11/05/23 11:25 NIH Stroke Scale [NIHSS] A score of 0 is normal or asymptomatic . Total possible score is 42. Inpatient: RN or Physician to activate a stroke alert for onset of new stroke symptoms or with NIHSS increase >/= 3 points. Following change in neurological status, NIHSS will be performed per physician order or more frequently PRN. -1a. Level of Consciousness Alert; keenly responsive -1b. LOC Questions Answers BOTH questions correctly. -1c. LOC Commands Performs both tasks correctly . -2. Best Gaze Normal -3. Visual No visual loss -4. Facial Palsy Normal symmetrical movements -5a. Left Arm No drift; arm holds 90 (or 45 ) degrees for full 10 seconds -5b. Right Arm No drift; arm holds 90 (or 45 ) degrees for full 10 seconds -6a. Left Leg No drift; leg holds 30-degree position for full 5 seconds -6b. Right Leg No drift; leg holds 30-degree position for full 5 seconds -7. Limb Ataxia Absent -8. Sensory Mild-to- moderate sensory loss; -9. Best Language No aphasia; normal -10. Dysarthria Normal -Total 1 Query Text:A score of 0 is normal or asymptomatic. Total possible score is 42 . ED: Notify Physician for NIHSS increase by > / = 3 points. Inpatient: RN or Physician to activate a stroke alert for NIHSS increase of > / = 3 points. Coma Scale [Assess] -Eye Opening Spontaneous -Motor Obeys Commands -Verbal Oriented [Total] -Coma Scale Total 15 NIHSS 1a. Level of Consciousness: Alert; keenly responsive 1b. LOC Questions: Answers BOTH questions correctly. 1c. LOC Commands: Performs both tasks correctly. 2. Best Gaze: Normal 3. Visual: No visual loss 4. Facial Palsy: Normal symmetrical movements 5a. Left Arm: No drift; arm holds 90 (or 45) degrees for full 10 seconds 5b. Right Arm: No drift; arm holds 90 (or 45) degrees for full 10 seconds 6a. Left Leg: No drift; leg holds 30-degree position for full 5 seconds 6b. Right Leg: No drift; leg holds 30-degree position for full 5 seconds 7. Limb Ataxia: Absent 8. Sensory: Normal; no sensory loss 9. Best Language: No aphasia; normal 10. Dysarthria: Normal 11. Extinction and Inattention: No abnormality Total: 0 Physical Exam Narrative General: The patient appears nutritionally appropriate, well-groomed, and appears comfortable in no acute distress. Mental Status:? The patient?s mental status was normal including orientation.? Language was intact.? Cranial nerves:? Visual velez full, and extra-ocular motion was intact. Face motion symmetric.? There was no dysarthria. Motor: Normal strength and tone in all four extremities. No pronator drift. Sensation: Intact light touch bilaterally, no extinction.? Coordination:? Bilateral finger to nose was normal.? There was no dysmetria. Gait:? deferred Lab / Micro Data 11/05/23 06:35 11/05/23 06:35 Labs: Laboratory Results - last 24 hr 11/04/23 22:13: POC Glucose 130 H 11/04/23 22:20: WBC 9.4, RBC 4.87, Hgb 14.7, Hct 44.7, MCV 91.8, MCH 30.2, MCHC 32.9, RDW Std Deviation 43.2, RDW Coeff of Shelli 12.8, Plt Count 303, MPV 9.9, Immature Gran % (Auto) 0.300, Neut % (Auto) 45.9 L, Lymph % (Auto) 39.8, Glades % (Auto) 10.0, Eos % (Auto) 2.9, Baso % (Auto) 1.1 H, Absolute Neuts (auto) 4.3, Absolute Lymphs (auto) 3.74, Nucleated RBC % 0, Atypical Lymphocytes 2+, Platelet Estimate ADEQUATE, RBC Morphology N CHROM, Anisocytosis RARE, Macrocytosis RARE, ESR 3, PT 14.0, INR 1.1, APTT 26.8, Sodium 140, Potassium 3.6, Chloride 104, Carbon Dioxide 29.0, Anion Gap 7, BUN 29 H, Creatinine 1.39 H , Estim Creat Clear Calc 43.97, Est GFR (MDRD) Af Amer 64, Est GFR (MDRD) Non-Af 53 L, BUN/Creatinine Ratio 20.9 H, Glucose 118 H, Hemoglobin A1c 5.4, Calcium 9.4, Troponin I High Sens 5, TSH 4.85 H 11/04/23 23:50: Ethyl Alcohol < 3.0 11/05/23 06:35: WBC 7.1, RBC 4.44 L, Hgb 13.6, Hct 40.4, MCV 91.0, MCH 30.6, MCHC 33.7, RDW Std Deviation 42.2, RDW Coeff of Shelli 12.7, Plt Count 251, MPV 10.3, Immature Gran % (Auto) 0.300, Neut % (Auto) 57.2, Lymph % (Auto) 29.9, Glades % (Auto) 9.3, Eos % (Auto) 2.5, Baso % (Auto) 0.8, Absolute Neuts (auto) 4.1, Absolute Lymphs (auto) 2.12, Nucleated RBC % 0, Differential Comment SCANNE D, Sodium 138, Potassium 3.3 L, Chloride 105, Carbon Dioxide 28.0, Anion Gap 5, BUN 25 H, Creatinine 1.15, Estim Creat Clear Calc 53.20, Est GFR (MDRD) Af Amer 79, Est GFR (MDRD) Non-Af 66, BUN/Creatinine Ratio 21.7 H, Glucose 97, Calcium 8.8, Phosphorus 2.4 L, Magnesium 2.3, Total Bilirubin 0.70, AST 24, ALT 22, Alkaline Phosphatase 84, Total Protein 6.4, Albumin 3.4, Globulin 3.0, Albumin/Globulin Ratio 1.1, Triglycerides 226 H, Cholesterol 142, LDL Cholesterol 65, VLDL Cholesterol 45 H, HDL Cholesterol 32 L, Free T4 0.80 11/05/23 07:52: Urine Opiates Screen NEGATIVE, Urine Methadone Screen NEGATIVE, Ur Barbiturates Screen NEGATIVE, Ur Phencyclidine Scrn NEGATIVE, Ur Amphetamines Screen NEGATIVE, MDMA (Ecstasy) Screen NEGATIVE, U Benzodiazepines Scrn NEGATIVE, Urine Cocaine Screen NEGATIVE, U Cannabinoids Screen NEGATIVE, Ur Drug Screen Comment Imaging Radiology Impression Brain CT 11/04/23 22:13 IMPRESSION: Age-related changes. N.B. : The above Results were Read Back by Quinton Capps DO to Karri Linda MD, and understanding confirmed on 11/04/2023 22:58:24 (ET). Electronically Signed: Quinton Capps DO at 22:44 EDT , Head/Neck CTA 11/04/23 22:13 IMPRESSION: Negative CTA Carotid, and CTA Brain. N.B. : The above Results were Read Back by Qiunton Capps DO to Karri Linda MD, and understanding confirmed on 11/04/2023 22:58:18 (ET). Electronically Signed: Quinton Capps DO at 22:55 EDT , Chest X-Ray 11/04/23 22:50 IMPRESSION: No radiographic evidence of acute cardiopulmonary disease. Electronically Signed: Quinton Capps DO at 23:15 EDT , Echocardiogram 11/04/23 23:31 Interpretation Summary The left ventricular ejection fraction is 65 %. Lipomatous hypertrophy of the atrial septum. Bubble contrast study is negative for PFO/ASD. Mild tricuspid valve insufficiency. Mildly dilated aortic root. Large hepatic cyst noted. Consider ultrasound liver for further evaluation. Ordering Physician: John Jones Referring Physician: Mat Jacobs Performed By: Hilaria Hutchinson, MADELAINE, RVT Brain MRI 11/05/23 23:31 IMPRESSION: Involutional changes of the brain, as described above. Recent right parietal and occipital infarcts. No hemorrhage. Electronically Signed: Tristian Mcgraw MD at 12:11 EDT ,
--- NOTE | 2023-11-05 23:31 | MRI_ITS ---
STUDY: MRI BRAIN WITHOUT CONTRAST REASON FOR EXAM: Male, 78 years old. Please evaluate for possible CVA. TECHNIQUE: Standardized multiplanar fat and water weighted pulse sequences were obtained. COMPARISON: CT November 04, 2023. FINDINGS: There is mild cerebral atrophy with widening of the extra-axial spaces and ventricular dilatation. There are multiple white matter hyperintensities, distributed throughout the deep white matter tracts of the cerebral hemispheres, consistent with moderate chronic white matter ischemic changes. Normal T2* images of the brain without demonstrated susceptibility artifact. There is no demonstrated hemosiderin stain. There are small foci of restricted diffusion at the periphery of the right parietal and occipital lobes consistent with recent, acute or subacute, infarcts. Normal bilateral basal ganglia. Normal thalami. There is no extra-axial fluid accumulation. Normal flow voids within the major intracranial circulation suggesting patency by spin echo criteria. Normal sella turcica, pituitary gland, infundibular stalk, optic chiasm and hypothalamus. Normal tectal plate and pineal gland. Normal midbrain, nona and medulla. Normal cerebellum. Normal basal cisterns. Normal bilateral temporal bones. Normal bilateral internal auditory canals. There are bilateral ocular lens implants with otherwise normal intraorbital contents. Normal visualized paranasal sinuses. Normal calvarium and skull base. Normal visualized soft tissue structures. Normal visualized upper cervical spine. MRI/Brain without Contrast IMPRESSION: Involutional changes of the brain, as described above. Recent right parietal and occipital infarcts. No hemorrhage. Electronically Signed: Tristian Mcgraw MD at 12:11 EDT ,
== END 2023-11-05 13:20 | disposition home or self-care (01) ==
LOC: ED 23:17 → PCU 11-05 01:21
PROVIDERS: Admitting Provider Internal Medicine; Emergency Provider Emergency Medicine; PCP Family Medicine
DX: G45.9 Transient cerebral ischemic attack, unspecified (principal); R47.01 Aphasia; I10 Essential (primary) hypertension; E78.5 Hyperlipidemia, unspecified; K21.9 Gastro-esophageal reflux disease without esophagitis; R29.898 Other symptoms and signs involving the musculoskeletal system; R20.2 Paresthesia of skin; Z79.899 Other long term (current) drug therapy; R29.703 NIHSS score 3; G47.33 Obstructive sleep apnea (adult) (pediatric); Z86.39 Personal history of other endocrine, nutritional and metabolic disease; M35.3 Polymyalgia rheumatica; F41.1 Generalized anxiety disorder; M19.90 Unspecified osteoarthritis, unspecified site
CPT/HCPCS: 70450; 70496; 70498; 70551; 71045; 80048; 80053; 80061; 80307; 80320; 82962; 83036; 83735; 84100; 84439; 84443; 84484; 85025; 85610; 85652; 85730; 92523; 92610; 93005; 93306; 94762; 96105; 97161; 97166; 97802; 99221; 99285; J7030; Q9967; A4216; G0378; G0480

== ENCOUNTER → 2023-11-22 | Outpatient (CLI) | payer MEDICARE, SELFPAY ==
--- NOTE | 2023-11-22 10:12 | US_ITS ---
INDICATION: Other specified diseases of liver EXAMINATION: Ultrasound US Abdomen Limited (quadrant) TECHNIQUE: Kahn scale and color doppler imaging was performed of the right upper quadrant. COMPARISON: No relevant prior comparison study available FINDINGS: LIVER: The liver is normal in size and echogenicity measuring about 16 cm in length. The portal vein is patent with normal hepatopedal flow. No focal hepatic lesion. There is no free fluid. GALLBLADDER AND BILIARY TREE: No shadowing gallstone, pericholecystic fluid or gallbladder wall thickening is demonstrated. The gallbladder wall measures about 3 mm. The proximal common bile duct measures 4 mm, which is within normal limits for the patient''s age. Sonographic Wang''s sign: Negative. PANCREAS: The pancreas is obscured by bowel gas and not visualized. Right kidney: Right kidney measures 12.3 cm in length. The renal cortex measures 1.3 cm. There is a cyst in the lower pole of the right kidney measuring about 3.7 cm. No evidence of hydronephrosis. US/Liver IMPRESSION: 1. No evidence of gallstones. 2. Right renal cyst. Electronically Signed: Harpreet Cunningham MD at 12:50 EDT ,
== END | disposition home or self-care (01) ==
LOC: US 10:11
PROVIDERS: PCP Family Medicine; Referring Provider Family Medicine; Visit Provider Family Medicine
DX: K76.89 Other specified diseases of liver (principal)
CPT/HCPCS: 76705

== ENCOUNTER → 2024-12-11 | Outpatient (CLI) | payer MEDICARE, SELFPAY ==
[2024-12-11 17:43] LABS: Cholesterol 155 mg/dL (<=200); High Density Lipoprotein 38 mg/dL; Low Density Lipoprotein Calc. 69 mg/dL; Triglycerides 243 mg/dL; Very Low Density Lipoprotein 49 mg/dL (5-40); cholesterol:hdl ratio screen 4.12
[2024-12-11 17:46] LABS: AST(SGOT) 31 U/L (<=37); Alanine Aminotransfer ALT/SGPT 17 U/L (<=46); Albumin, Serum 4.4 g/dL (3.4-4.8); Alkaline Phosphatase 105 U/L (40-129); Globulin 2.9 g/dL (2.2-4.2); Protein, Total 7.3 g/dL (5.9-8.4); Total Bilirubin 1.38 mg/dL (0.00-1.30)
== END | disposition home or self-care (01) ==
LOC: BFHLAB 13:10
PROVIDERS: PCP Family Medicine; Visit Provider Student in an Organized Health Care Education/Training Program
DX: E78.1 Pure hyperglyceridemia (principal)
CPT/HCPCS: 36415; 80061; 80076